=== PATIENT | male | born 1950 | race Caucasian/White ===

== ENCOUNTER → 2016-09-24 | Outpatient (CLI) | payer BC ==
[~2016-09-24] MED LIST: ACET-1256 PO; ALBU0.5N2 NEB; ALBU1AER9 INH; ALFU10TA30 PO; ALPR1TAB3 PO; CETI10TA84 PO; CLON2TAB PO; DIPH1TAB PO; ENOX1INJ8 SQ; FLUO10CA48 PO; FLUO20CA35 PO; FLUT1INH INH; HYDR-5688 PO; MOME200A INH; MONT1TAB3 PO; OXYC-57 PO; OXYSR10 PO; PHEN1SOL3 NAE; PRD/1 PO; PREG1CAP28 PO; PRLSR20 PO; PSEU60TA80 PO; SILO8CAP PO; SUMA50TA15 PO; TRAM-10 PO; TRIA1SPR4 NAE
--- NOTE | 2016-09-24 09:18 | DIAGNOSTIC IMAGING REPORT ---
CHEST 2 VIEWS ROUTINE CLINICAL HISTORY: Chronic bronchitis COMPARISON STUDY: 12/25/2015 FINDINGS: The cardiac and mediastinal contours are normal. There is no evidence of focal pulmonary consolidation. There is no evidence of failure. No pleural effusions are visualized.[ IMPRESSION: No active disease in the chest. Electronically signed by: Alan Garsia M.D. 09/24/2016 9:16 AM Dictated Date/Time: 09/24/2016 9:15 AM
== END | disposition home or self-care (01) ==
LOC: C.RAD1850 08:36
PROVIDERS: ATTEND Internal Medicine Pulmonary Disease
DX: J42 Unspecified chronic bronchitis (principal)

== ENCOUNTER → 2016-12-21 | Outpatient (CLI) | payer BC ==
[~2016-12-21] MED LIST changes: +ALFU10TA2 PO; -ALFU10TA30 PO; -DIPH1TAB PO; +DIPH1TAB87 PO
--- NOTE | 2016-12-21 10:51 | DIAGNOSTIC IMAGING REPORT ---
CHEST CT WITHOUT CONTRAST CT DOSE: 657.88 mGy.cm HISTORY: Follow-up lung nodules. TECHNIQUE: Multiaxial CT images of the chest were performed without contrast. COMPARISON: Chest CT 10/31/2015. Chest CT 10/11/2009. FINDINGS: The central airways are patent. No pleural effusions. No pneumothorax. Stable 6 x 4 mm subpleural nodule within the right middle lobe on image 180. A few scattered linear densities and tree-in-bud nodular opacities within the bases of the bilateral lower lobes are again noted. This is similar to the prior study. There is mild bronchiectasis seen within the bases of the lower lobes, unchanged. Stable 4 mm nodule within the right lower lobe on image 227. No mediastinal or hilar lymphadenopathy. Calcified subcarinal and right hilar lymph nodes. Hepatic steatosis. The unenhanced spleen and adrenal glands are unremarkable. The ascending thoracic aorta measures up to 4 cm in diameter. This remains unchanged. IMPRESSION: 1. Stable subcentimeter pulmonary nodules compared to the [address] Therefore, these are considered to be benign. No additional follow-up required. 2. Mild bilateral lower lobe bronchiectasis with bibasilar patchy densities and tree-in-bud nodular opacities. This is similar to the prior study. This favors chronic inflammatory/infectious change, possibly due to aspiration. 3. The ascending thoracic aorta measures up to 4 cm in diameter, unchanged. Electronically signed by: Jamarcus Vickers M.D. 12/21/2016 10:49 AM Dictated Date/Time: 12/21/2016 10:42 AM
== END | disposition home or self-care (01) ==
LOC: C.CTS 10:27
PROVIDERS: ATTEND Internal Medicine Pulmonary Disease
DX: R91.8 Other nonspecific abnormal finding of lung field (principal)

== ENCOUNTER 2017-01-26 05:12 | Inpatient (IN) | payer BC, OTHER ==
--- NOTE | 2016-12-30 12:03 | PAT Medication Instructions ---
Service Date Dec 30, 2016. Current Home Medication List Acetaminophen (Tylenol), 1 TAB PO Q8 PRN for PRN Albuterol 0.5% Soln (Ventolin 0.5% Soln), 1 VIAL NEB Q6 PRN for Shortness of Breath Albuterol Sulfate (Proair Hfa), 2 PUFFS INH Q4 PRN for SOB/Wheezing Alfuzosin Hcl (Uroxatral), 10 MG PO QAM Cetirizine (Zyrtec), 10 MG PO HS Clonazepam (Clonazepam Odt), 2 MG PO BID Diphenhydramine Hcl (Benadryl Allergy), 25-50 MG PO PRN Fluoxetine (Prozac), 10 MG PO QAM Fluticasone Furoate-Vilanterol (Breo Ellipta), 1 DOSE INH QAM Montelukast Sodium (Singulair), 10 MG PO HS Omeprazole (Prilosec), 20 MG PO QAM Prednisone (Prednisone), 8 MG PO QAM Pregabalin (Lyrica), 150 MG PO BID Tramadol (Ultram), 100 MG PO QID PRN for Pain Triamcinolone Acetonide (Nasal (Nasacort Allergy 24Hr), 2 SPRAY DORIS QAM Medication Instructions For Your Scheduled Surgery - Hold the following medications the morning of surgery: Alfuzosin Hcl (Uroxatral), 10 MG PO QAM - Take the following medications the morning of surgery with a sip of water: Triamcinolone Acetonide (Nasal (Nasacort Allergy 24Hr), 2 SPRAY DORIS QAM Pregabalin (Lyrica), 150 MG PO BID Prednisone (Prednisone), 8 MG PO QAM Omeprazole (Prilosec), 20 MG PO QAM Fluticasone Furoate-Vilanterol (Breo Ellipta), 1 DOSE INH QAM Fluoxetine (Prozac), 10 MG PO QAM Clonazepam (Clonazepam Odt), 2 MG PO BID Albuterol 0.5% Soln (Ventolin 0.5% Soln), 1 VIAL NEB Q6 PRN for Shortness of Breath (if needed) Albuterol Sulfate (Proair Hfa), 2 PUFFS INH Q4 PRN for SOB/Wheezing (bring with you to hospital morning of surgery) Acetaminophen (Tylenol), 1 TAB PO Q8 PRN for PRN (if needed) Tramadol (Ultram), 100 MG PO QID PRN for Pain (okay to take up to 4 hours prior to surgery if needed) Diphenhydramine Hcl (Benadryl Allergy), 25-50 MG PO PRN (if needed) - Take the following medications as scheduled the night before surgery: Pregabalin (Lyrica), 150 MG PO BID Montelukast Sodium (Singulair), 10 MG PO HS Diphenhydramine Hcl (Benadryl Allergy), 25-50 MG PO PRN (if needed) Clonazepam (Clonazepam Odt), 2 MG PO BID Cetirizine (Zyrtec), 10 MG PO HS Albuterol 0.5% Soln (Ventolin 0.5% Soln), 1 VIAL NEB Q6 PRN for Shortness of Breath (if needed) Albuterol Sulfate (Proair Hfa), 2 PUFFS INH Q4 PRN for SOB/Wheezing (if needed) Acetaminophen (Tylenol), 1 TAB PO Q8 PRN for PRN (if needed) Tramadol (Ultram), 100 MG PO QID PRN for Pain (if needed) If you have any questions please call us at [phone] (Kirti Cuellar PA-C) or [phone] or [phone]
[2016-12-30 12:30] LABS: BASO % 0.2 %; BASO ABS # 0.02 K/uL (0-0.2); COMPLETE YES; EOS % 0.3 %; HEMATOCRIT 45.5 % (42-52); IG% 0.2 %; LYMPH % 6.3 %; MEAN CELL VOLUME 91.4 fL (80-100); MEAN CORPUSCULAR HEMOGLOBIN 30.5 pg (25-34); MEAN CORPUSCULAR HGB CONC 33.4 g/dl (32-36); MEAN PLATELET VOLUME 10.6 fL (7.4-10.4); MONO % 4.2 %; NEUT % 88.8 %; PLATELET COUNT 218 K/uL (130-400); RED BLOOD COUNT 4.98 M/uL (4.7-6.1)
[2016-12-30 12:42] LABS: PARTIAL THROMBOPLASTIN RATIO 1.1; PROTHROMBIN TIME (PATIENT) 10.5 SECONDS (9.0-12.0)
--- NOTE | 2016-12-30 12:54 | DIAGNOSTIC IMAGING REPORT ---
TWO VIEW CHEST CLINICAL HISTORY: Preoperative examination. FINDINGS: PA and lateral chest radiographs are compared to study dated 09/24/2016 and correlated with chest CT dated 12/21/2016. The cardiomediastinal silhouette is unremarkable. The lungs and pleural spaces are clear. There is no pneumothorax. The bony thorax appears intact. IMPRESSION: No active disease in the chest. Electronically signed by: Christopher Bhatti M.D. 12/30/2016 12:52 PM Dictated Date/Time: 12/30/2016 12:51 PM
[2016-12-30 14:21] LABS: BUN/CREATININE RATIO 17.6 (10-20); CREATININE 0.9 mg/dl (0.60-1.40); POTASSIUM 4.4 mmol/L (3.5-5.1)
[2016-12-30 14:30] LABS: CALCIUM 9.2 mg/dl (8.5-10.1)
--- NOTE | 2017-01-15 16:11 | HISTORY & PHYSICAL EXAMINATION ---
DATE OF ADMISSION: 01/26/2017 ADMISSION HISTORY AND PHYSICAL ATTENDING PHYSICIAN: Dr. Jos Viera. FAMILY PHYSICIAN: Dr. Luis M Barksdale. CHIEF COMPLAINT: Left knee pain times many years. HISTORY OF PRESENT ILLNESS: The patient is a pleasant 67-year-old male who is here today for a preoperative history and physical scheduled for an elective left total knee arthroplasty by Dr. Viera on 01/26/2017. His pain has been ongoing for the last couple of years has progressively worsened. His pain is increased with activity and weightbearing. He has had decreased activities of daily living, due to pain in his knee that affects him on a daily basis. He has had pain with range of motion and limited motion due to stiffness and discomfort of his left knee. Aggravating activities include walking, going up and down steps. He does get occasional pain at rest and at night. Prior treatments include Tylenol Arthritis prednisone, tramadol, he is unable to take nonsteroidal anti-inflammatories due to his allergy to those. He has had previous corticosteroid injections with no significant long-lasting relief as well as viscosupplementation. He has tried things like ice and heat and activity modification with no significant relief of his left knee pain. Due to failure of conservative treatment and him continuing to have progressively worsening pain, which affects his activities of daily living and quality of life, he has elected to proceed with an elective left total knee arthroplasty. PAST MEDICAL HISTORY: Significant for: 1. Asthma. 2. Polymyalgia rheumatica. 3. Seasonal allergies. 4. Nasal polyps. 5. Osteoarthritis. 6. AC joint arthropathy. 7. Bronchiectasis. 8. Carpal tunnel syndrome of his left wrist. 9. Rheumatoid arthritis in his hands. 10. Panic disorder/panic attacks. 11. History of lung nodules. 12. Eczema. 13. Gastroesophageal reflux disease. CURRENT MEDICATIONS 1. Clobetasol topical 0.05% topical cream as needed. He states he uses these on skin patches that he gets, which are worse in the winter time. 2. Prednisone 7.5 mg alternating with 10 mg, is currently working on a taper to get off these. During the time of his surgery, he may be on 5 mg tablets. 3. Breo Ellipta 100 mcg per mcg/25 mcg 1 puff inhaled daily. 4. Alfuzosin 7.5 mg p.o. daily. 5. Klonopin 2 mg p.o. b.i.d. 6. Prozac 20 mg p.o. daily; he only takes half of the capsule. 7. Tramadol 50 mg 1-2 tabs every 6 hours as needed for pain; he states he takes 8 per day. 8. Singulair 10 mg 1 tab p.o. q.p.m. 9. Zyrtec 10 mg p.o. daily. 10. Tylenol 325 mg p.o. q.i.d. as needed for pain. He does take extra strength 500 mg tablet daily, he takes 1000 mg per day. 11. Albuterol ipratropium 2.5 mg/0.5 mg per 3 mL inhaled solution 3 mL inhaled q.i.d. as needed for shortness of breath. 12. Prilosec 20 mg 1 cap p.o. daily. 13. Nasacort 55 mcg per inhaled nasal spray 2 sprays intranasally daily. 14. Lyrica 150 mg p.o. b.i.d. 15. Albuterol nebulizer p.r.n. wheezing and shortness of breath. ALLERGIES: HE IS ALLERGIC TO: 1. CODEINE WHICH CAUSES WHEEZING AND TICKLING IN HIS THROAT 2. SULFA DRUGS WHICH IS AN ASTHMA TRIGGER. 3. CATS. 4. MOLD. 5. POLLEN. 6. NSAIDS WHICH IS AN ASTHMA TRIGGER AND CAUSES HIM INABILITY TO BREATHE. SOCIAL HISTORY: He lives with his in a single level home. He states that he does drink a couple of beers per day. He denies any tobacco use. He does drink coffee daily. He is a retired electronic repair troubleshooter. PAST SURGICAL HISTORY AND HOSPITALIZATIONS: He had a hernia repair 3 years ago. He has had a history of bilateral knee arthroscopies, history of back surgery with lumbar laminectomy and fusion. He has also had a history of cervical spine and thoracic surgery. He has had a history of nasal polyp surgery. FAMILY HISTORY: Significant for stroke in his mother. His mother also had leukemia and at the age of 87. His father had colon cancer and at the age of 56. REVIEW OF SYSTEMS: Denies any history of blood transfusions, bleeding disorders, blood clots, DVT, phlebitis or pulmonary embolisms. He does have dried scaly patches of eczema during the winter. He also does get headaches and migraines frequently that start with flashes of light and cause occasional pain. He does have blurry vision without his glasses. Denies any history of seizures, lightheadedness or dizziness. He states that he snores a lot and is very loud. He does not know if he has had sleep apnea. If has sleep apnea, he has never been worked up for that. He states he just falls asleep very quickly. He also complains of some recent severe pain in his calf, which seems like a Charley horse, resolved in 10-15 minute and he has not had any further pain since. He also complains of right-sided rib pain, which he attributes to his asthma. Denies any stomach problems, nausea, vomiting, diarrhea or constipation. He states that he does have a history of a hiatal hernia and some mild heartburn. He denies any urinary symptoms or foul-smelling urine or burning with urination. He states he does have trouble with his flow occasionally, beer and coffee help with this. He states that he does not feel like he empties his bladder. He also states that he has unexplained weight gain. He thinks it is from his medications. He states that he has been trying to lose weight, but is not able to do so. He also talks a lot today about the psychiatric medications that he is on. He believes that he has been given a placebo of Ativan and Xanax. He states he feels that his psychiatrist is mixing his medications and giving him medication that he does not want or know about. Although it is not listed in his medication list, he states that he feels like he is on Abilify that he side effects from Abilify and feels that his psychiatrist is secretly giving him that. He states he occasionally gets into a fog. He is worried about anesthesia, being aware of all the meds that he is on. He also states that he has no sexual desire and again thinks that this is the side effects from medications that he feels that his psychiatrist has prescribed him secretly and hidden in the other medications that he takes. PHYSICAL EXAMINATION: GENERAL APPEARANCE: He is alert and oriented x3. He is in no acute distress. Well-dressed, well-nourished male. Height is 6 feet 1 inch, weight is 230 pounds. He walks with a slight antalgic gait with no assistive device. HEENT: Head is atraumatic, normocephalic. Eyes: Extraocular movements intact. Pupils are equal, round and reactive to light. Sclerae are normal. Ears: Hearing is grossly normal. Ear canals are clear. TMs are clear with normal light reflex. NOSE: Normal terminus with no erythema or drainage. Throat: Oropharynx is clear with moist mucous membranes. Good dentition. Uvula midline. NECK: Supple, no lymphadenopathy, no carotid bruits. Trachea is midline. LUNGS: Clear to auscultation bilaterally. No adventitious sounds today. No accessory muscle use. Chest is nontender: No retractions. HEART: Regular rate and rhythm, normal S1, S2. No murmurs appreciated. ABDOMEN: Soft, nontender, nondistended. Bowel sounds heard in all 4 quadrants. EXTREMITIES: Examination of his left knee reveals varus alignment. No effusion of his left knee today. He can extend maybe minus 1 degrees and he can flex to 125 degrees comfortably. He has a stable ligamentous exam. He has crepitation with range of motion. He is able to independently straight leg raise. He has full painless [id number] of his left hip. No calf with palpation. No distal edema. Distal neurovascular is intact. Distal pulses are 1+. RADIOLOGY IMAGES: Knee radiographs show has bilateral knee arthritis, slight varus alignment, the arthritis is moderate to severe with no fracture or subluxation. With the knee in flexion, he is bone on bone, especially in the medial compartment. 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 PLAN: The patient is scheduled to undergo an elective left total knee arthroplasty by Dr. Viera on 01/26/2017. Risks and complications of surgery were explained to the patient and include but are not limited to infection, pain, bleeding, scarring, nerve and blood vessel damage, wound problems, weakness, stiffness, incomplete relief of symptoms, blood clots, pulmonary embolism, hardware failure, loosening, wear, need for manipulation and postoperative arthrofibrosis or stiffness, heart attack, stroke and . All questions were answered. Informed consent was obtained. He will obtain a preoperative appointment with anesthesia, which they will obtain a preoperative EKG, CBC, PT, PTT, PRP, and type and screen. He will also have a chest x-ray at that time. He will obtain preoperative medical clearance from his family physician, Dr. Barksdale. All questions were answered today. He will be admitted postoperatively for a minimum of 2 days stay. hospital course was discussed, postoperative course was discussed. He would like to return home with either home health or outpatient physical therapy. We will use Lovenox for DVT prophylaxis for 4 weeks after surgery 30 mg b.i.d. We will also give him preoperative dose of hydrocortisone 100 mg preoperatively, 50 mg postoperative day #1 and 25 mg postoperative day #2. All questions were answered today. He knows to call with any further problems or questions. BETI
[2017-01-26] VITALS (10 sets, daily range): BP systolic 110–156; BP diastolic 62–89; PULSE 85–115; TEMP 36.4–37.3; O2SAT 92–97; Ht 185.4 cm; Wt 105.8 kg
[~2017-01-26] VITALS: Ht 185.4 cm; Wt 105.8 kg
[~2017-01-26 05:12] MED LIST changes: +ACETAMINOPHEN 500 MG TAB PO SCH; -ALPR1TAB3 PO; +CEFAZOLIN 2000 MG/60 ML D5W 60 ML IV SCH; +CLONIDINE HCL 0.1 MG/24 HR TRANSDERM SYS TD SCH; +DEXAMETHASONE 4 MG TAB PO SCH; -ENOX1INJ8 SQ; +EPINEPHRINE INFIL SCH; +FAMOTIDINE 20 MG TAB PO SCH; -FLUO20CA35 PO; +GABAPENTIN 300 MG CAP PO SCH; -HYDR-5688 PO; +LACTATED RINGER'S 1000ML 1,000 ML IV SCH; +METHYLPREDNISOLONE IV 100 MG in SYRINGE 0 ML IV SCH; +METOCLOPRAMIDE HCL 10 MG TAB PO SCH; -MOME200A INH; -OXYC-57 PO; +OXYCODONE HCL 10 MG TABCR (OXYCONTIN) PO SCH; -OXYSR10 PO; -PHEN1SOL3 NAE; -PSEU60TA80 PO; +ROPIVACAINE 5MG/ML 30 ML 100 MG, MoRPHine SULFATE 4 MG, EpINEphrine INJ 1MG/ML AMP 0.2 ... INFIL SCH; +ROPIVACAINE INFIL SCH; -SILO8CAP PO; -SUMA50TA15 PO; +TRAMADOL HCL 50 MG TAB PO SCH; +TRANEXAMIC ACID INJ 1,000 MG in SODIUM CHLORIDE 0.9% 100ML 100 ML IV SCH; +[UNRECOGNIZED DRUG - OTHER] INFIL SCH; +[UNRECOGNIZED DRUG - REMARK] SCH
[2017-01-26] MEDS ORDERED: METHYLPREDNISOLONE IV 100 MG in SYRINGE 0 ML IV SCH (06:00)
[2017-01-26] MEDS ORDERED: LACTATED RINGER'S 1000ML 500 ML IV ONE (06:00)
[2017-01-26] MEDS ORDERED: EPINEPHRINE IV ONE ×3 (06:00)
[2017-01-26] MEDS ORDERED: CEFAZOLIN 2000 MG/60 ML D5W 60 ML IV SCH (06:00)
[2017-01-26] MEDS ORDERED: GABAPENTIN 300 MG CAP PO SCH (06:00)
[2017-01-26] MEDS ORDERED: FAMOTIDINE 20 MG TAB PO SCH (06:00)
[2017-01-26] MEDS ORDERED: METOCLOPRAMIDE HCL 10 MG TAB PO SCH (06:00)
[2017-01-26] MEDS ORDERED: ACETAMINOPHEN 500 MG TAB PO SCH (06:00)
[2017-01-26] MEDS ORDERED: CLONIDINE HCL 0.1 MG/24 HR TRANSDERM SYS TD SCH (06:00)
[2017-01-26] MEDS ORDERED: OXYCODONE HCL 10 MG TABCR (OXYCONTIN) PO SCH (06:00)
[2017-01-26] MEDS: LACTATED RINGER'S 1000ML 1,000 ML IV SCH ×2 (06:00→21:44)
[2017-01-26] MEDS ORDERED: [UNRECOGNIZED DRUG - OTHER] IV ONE ×3 (06:00)
[2017-01-26] MEDS ORDERED: ROPIVACAINE IV ONE ×3 (06:00)
[2017-01-26] MEDS ORDERED: LACTATED RINGER'S 1000ML 1,000 ML IV SCH (06:00)
[2017-01-26] MEDS ORDERED: TRAMADOL HCL 50 MG TAB PO SCH (06:00)
[2017-01-26] MEDS ORDERED: BUPIVACAINE/EPINEPHRINE 0.25% 1:200,000 30 ML VIAL ONE ×2 (06:35→06:47)
[2017-01-26] MEDS ORDERED: BUPIVACAINE 0.5 % 5 MG/1 ML PF 10ML VIAL ONE (06:36)
[2017-01-26] MEDS ORDERED: MIDAZOLAM HCL 1 MG/ML 2ML VIAL ONE ×3 (06:41→07:27)
[2017-01-26] MEDS: TRANEXAMIC ACID INJ 1,000 MG in SODIUM CHLORIDE 0.9% 100ML 100 ML IV SCH ×2 (06:44→07:00)
--- NOTE | 2017-01-26 06:44 | History & Physical Bridge Note ---
H&P Re-Evaluation Bridge Note: I have examined the patient, reviewed the History & Physical and in the interval since the performance of the History & Physical I have noted the following changes of clinical significance: some wheezing and congestion yesterday, better today, carpal tunnel, lumbago No changes noted
[2017-01-26] MEDS ORDERED: SODIUM CHLORIDE 0.9% PF 50 ML VIAL ONE (06:47)
[2017-01-26] MEDS ORDERED: BUPIVACAINE LIPOSOME 1/3% 266 MG/20 ML VIAL INFIL ONE (06:47)
[2017-01-26] MEDS ORDERED: BACITRACIN 50000 UNIT VIAL ONE (06:47)
[2017-01-26] MEDS ORDERED: ORTHO JOINT ANESTHETIC ONE (07:02)
[2017-01-26] MEDS ORDERED: PROPOFOL IV EMULSION 10 MG/ML 20 ML VIAL IV ONE ×2 (07:33→09:18)
[2017-01-26] MEDS ORDERED: LIDOCAINE HCL 2% 2 ML VIAL (20MG/ML) ONE (07:33)
[2017-01-26] MEDS ORDERED: POVIDONE-IODINE OP SOLN 30 ML BTL ONE (07:34)
[2017-01-26] MEDS ORDERED: ONDANSETRON INJ 2 MG/ML 2 ML VIAL IV PRN ×2 (08:15→09:45)
[2017-01-26] MEDS ORDERED: FLUMAZENIL 0.1 MG/1 ML 10 ML VIAL IV PRN (08:15)
[2017-01-26] MEDS ORDERED: EpHEDrine SULFATE INJ 50 MG/ML AMP IV PRN (08:15)
[2017-01-26] MEDS ORDERED: MEPERIDINE HCL 25 MG/ML CARP IV PRN (08:15)
[2017-01-26] MEDS ORDERED: NALOXONE HCL 0.4 MG/1 ML VIAL/CARP IV PRN (08:15)
[2017-01-26] MEDS ORDERED: ATROPINE SULFATE 0.1 MG/ML 5ML SYR IV PRN (08:15)
[2017-01-26] MEDS ORDERED: LABETALOL HCL IV 5 MG/ML 20ML IV PRN (08:15)
[2017-01-26] MEDS ORDERED: PHENYLEPHRINE 100MCG/ML 5ML SYR IV PRN (08:15)
[2017-01-26] MEDS ORDERED: FENTANYL CITRATE INJ 50 MCG/1 ML 2 ML VIAL IV PRN (08:15)
--- NOTE | 2017-01-26 09:43 | [facility] Post Operative Brief Note ---
Immediate Operative Summary Operative Date January 26, 2017. Pre-Operative Diagnosis Left knee end stage degenerative joint disease Post-Operative Diagnosis Left knee end stage degenerative joint disease Procedure(s) Performed Left Total Knee Arthoplasty Surgeon Dr. Viera Benefits Analyst Surgeon(s) Gloria Roth PA-C Estimated Blood Loss 25ml Findings medial and patellar OA Specimens A: Left knee bone and tissue Drains 0 Anesthesia spinal with sedation Complication(s) None Disposition Recovery Room / PACU
[2017-01-26] MEDS ORDERED: SOD PHOSPHATE/SOD BIPHOSPHATE ENEMA 132 ML BTL PR PRN (09:45)
[2017-01-26] MEDS ORDERED: TRAMADOL HCL 50 MG TAB PO PRN (09:45)
[2017-01-26] MEDS ORDERED: NO NSAIDS SCH (09:45)
[2017-01-26] MEDS ORDERED: MAGNESIUM HYDROXIDE SUSP 30 ML UDC PO PRN (09:45)
[2017-01-26] MEDS ORDERED: ALBUTEROL HFA 8 GM INHALER INH PRN (09:45)
[2017-01-26] MEDS ORDERED: ALBUTEROL 0.083% NEBU SOLN 3 ML VIAL INH PRN (09:45)
[2017-01-26] MEDS ORDERED: BISACODYL 10 MG SUPP PR PRN (09:45)
[2017-01-26] MEDS ORDERED: DiphenhydrAMINE HCL 50 MG/ML VIAL IV PRN (09:45)
[2017-01-26] MEDS ORDERED: ALUMINUM/MAGNESIUM/SIMETH (MAALOX MAX) 30 ML UDC PO PRN (09:45)
--- NOTE | 2017-01-26 09:55 | [facility] Operative Report ---
Operative Report Operative Date January 26, 2017. Pre-Operative Diagnosis Left knee end stage degenerative joint disease Post-Operative Diagnosis Left Knee DJD Procedure(s) Performed Left Total Knee Arthroplasty Surgeon Dr. Jos Viera Financial Internship Surgeon(s) Jazmine Roth PA-C Estimated Blood Loss 25ml Findings DJD left knee Specimens A: Left knee bone and tissue Drains 0 Anesthesia spinal with sedation Complication(s) None Disposition Recovery Room / PACU (stable) Indications Patient is a 67 year old male with progressively worsening left knee pain, failed conservative treatments which included, corticosteroid injections, viscosupplementation and physical therapy. X-rays were taken, he was found to have end stage DJD left knee. Surgical intervention recommended and discussed, he wished to proceed with surgery. Risks/complications were discussed, informed consent obtained. Description of Procedure Patient was taken to the operating room. He had spinal anesthesia with peripheral nerve block. He was given IV Ancef for surgical prophylaxis. He also had 100mg Solu-Medrol prior to surgery. Time out performed, prepped and draped in routine sterile fashion. I was present the entire case,please see Dr Ross's operative report for further detail. He was awakened and taken to the recovery room in stable condition. I attest to the content of the Intraoperative Record and any orders documented therein. Any exceptions are noted below.
--- NOTE | 2017-01-26 10:12 | DIAGNOSTIC IMAGING REPORT ---
LEFT KNEE 1 OR 2 VIEWS ROUTINE CLINICAL HISTORY: Left knee degenerative joint disease. COMPARISON: Knee radiographs January 29, 2016. FINDINGS: Alignment of the total left knee arthroplasty is anatomic. There is no fracture or unexpected radiopaque foreign body. Skin jose manuel are present. IMPRESSION: Expected findings following total left knee arthroplasty. Electronically signed by: Jai Toledo M.D. 01/26/2017 10:10 AM Dictated Date/Time: 01/26/2017 10:10 AM
--- NOTE | 2017-01-26 10:35 | Anesthesiology Progress Note ---
Anesthesia Post Op Note Date & Time January 26, 2017 at 10:34 Vital Signs Pain Intensity: 0 Vital Signs Past 12 Hours Date Time Temp Pulse Resp B/P Pulse Ox O2 Delivery O2 Flow Rate FiO2 01/26/17 10:20 36.7 82 12 105/67 98 Nasal Cannula 2 01/26/17 10:10 86 12 108/66 99 Nasal Cannula 2 01/26/17 10:00 87 12 102/66 96 Nasal Cannula 2 01/26/17 09:50 86 14 108/66 98 Nasal Cannula 2 01/26/17 09:40 36.2 92 11 117/67 96 Nasal Cannula 2 01/26/17 05:45 36.5 86 18 139/84 94 Room Air Notes Mental Status: alert / awake / arousable, participated in evaluation Pt Amnestic to Procedure: Yes Nausea / Vomiting: adequately controlled Pain: adequately controlled Airway Patency, RR, SpO2: stable & adequate BP & HR: stable & adequate Hydration State: stable & adequate Neuraxial Anesthesia: was administered, sensory block is resolving Anesthetic Complications: no major complications apparent
[2017-01-26] MEDS ORDERED: PNEUMOCOCCAL POLYSACCHARIDES 25 MCG/0.5 ML VIAL/SYR IM. ONE (12:00)
[2017-01-26] MEDS ORDERED: PNEUMOCOCCAL ADMINISTRATION CHARGE ONE (12:00)
[2017-01-26] MEDS: D5W AND 1/2NSS + 20MEQ KCL 1,000 ML IV SCH ×2 (12:19→20:41)
[2017-01-26] MEDS: OXYCODONE HCL IR 5 MG TAB (IMMEDIATE RELEASE) PO PRN ×3 (12:19→23:22)
[2017-01-26] MEDS: HYDROmorphone INJ 1 MG/ML SYR IV PRN ×2 (13:13→15:41)
--- NOTE | 2017-01-26 13:45 | OPERATIVE REPORT ---
DATE OF OPERATION: 01/26/2017 PREOPERATIVE DIAGNOSIS: Osteoarthritis of the left knee with varus alignment. POSTOPERATIVE DIAGNOSIS: Same. PROCEDURE: Cemented left total knee arthroplasty. SURGEON: Dr. Viera. ORDER CLERK: Jazmine Roth. No resident or fellow available. ANESTHESIA: Spinal with sedation and adductor canal block. INDICATIONS OF PROCEDURE: The patient is a 67-year-old gentleman with end-stage arthritis of his left knee refractory to nonsurgical methods of management. He has had preoperative medical evaluation with his family doctor. PROCEDURE IN DETAIL: Informed consent was obtained. The patient identified as Keshav Wagner. He identified the operative site as the left knee. I marked with my initials. A preop surgical time out was performed. A preop dose of IV antibiotics was given. He was taken to the operating room, positioned supine on the operating room table. A bump was placed under the left hip and also under the left calf for positioning of the leg. A tourniquet was applied to the left thigh. The leg was prepped and draped in usual sterile fashion. DVT prophylaxis intraoperatively with foot pumps, postoperatively with Lovenox and early mobility as well as mechanical devices. The examination under anesthesia revealed less than 5 degree loss of terminal extension, varus alignment and no pathological ligamentous laxity. He had intact LCL function and no varus pseudolaxity. Flexion was approximately 130 degrees. The leg was prepped and draped in usual sterile fashion. The limb was exsanguinated with the Esmarch, tourniquet inflated to 225 mmHg. A midline incision was made followed by medial parapatellar arthrotomy. The synovial reflection in the lateral gutter was resected along with the retropatellar fat pad, a medial release was performed and soft tissue on the anterior aspect of the distal femur was excised. There was grade 4 chondrosis on the medial facet and median ridge of the patella about the size of a nickel. The median ridge and medial facet otherwise had grade 2 and 3 chondrosis. The lateral facet had relatively normal appearing cartilage. The trochlea, lateral compartment and lateral menisci were normal. There were large osteophytes on the medial side of the femur and tibia where there were large areas of cartilage wear and eburnated bone, 2 x 4 cm on the femur and the size of a quarter on the tibia. Two loose bodies were evacuated from back of the knee. The medial meniscus was deficient, particularly posteriorly where there appeared to be a posterior root tear. The remnants of the medial and lateral menisci and the cruciate ligaments were removed. The tibia was then subluxated. A ship pilot dispatcher hole was drilled into the tibia just anterior to the lateral tibial spine. The 0 degree cutting block was aligned to resect 10 off the lateral side corresponding to 2 off the medial side. The extramedullary alignment adina showed good slope and alignment intersecting the second ray and bisecting the ankle joint. The block was pinned in place. The cut was made and sized to a 5. A posteromedial release and marginal osteophytes were removed. A ship pilot dispatcher hole was drilled into the distal femur. Alignment adina was inserted followed by the distal femoral cutting guide set at 6 degrees of valgus, left knee 12 mm thick cut. This was pinned into place and the cut was made. The extension gap was a symmetric 10. The knee was then fully straight. Meagher's line and the transepicondylar axis were marked out and the distal femoral sizing guide was applied and sized to a 5. The external rotation drill holes were made and this matched the epicondylar axis. The size 5 anterior cutting block was applied. The collateral ligaments were protected and the anterior and posterior cuts plus the chamfer cuts were made. The flexion gap was a symmetric 10. The box cutting guide was applied, lateralized, pinned into place and the appropriate cut was made. There were no osteophytes noted in the back of the knee on inspection. The 5 femoral trial was applied followed by the 5 tibial trial. The keel was prepared with the drill and punch. The trial spacer was inserted and this showed full extension and flexion beyond 120 degrees neutral alignment, no pathological laxity in mid position, 1+ LCL laxity at 30 degrees and trace MCL laxity at 30 degrees. Attention was turned to the patella. The thickness was 24 mm. A 41 mm patella was selected. The guide was set to preserve 14 mm of bone. The clamp was applied and the cut was made. The patella was distalized and medialized. The lug holes were drilled and the trial patella was applied with good tracking using no hands technique. The components were removed from the knee. The canals were plugged. Ropivacaine and epinephrine plus saline were injected into the posterior capsular structures, approximately 15 mL. Throughout the case irrigation and protection of soft tissues were performed and moistened sponges were applied over the soft tissues during the approach and exposure. Two bags of Simplex P cement were mixed and after meticulously cleaning and preparing the surfaces with pulse lavage and drying them, the components were cemented in place; femur, tibia, and patella. The knee was held in full extension until the cement had hardened. During this time the remainder of the injection was given into the medial and lateral gutters and the skin and subcutaneous tissues for total volume of 40 mL. Irrigation with Betadine lavage soak was performed. The tourniquet was let down after 85 minutes of inflation. Bleeding was controlled with pressure and hemostasis. The second dose of tranexamic acid was given as one was given preoperatively. The back of the knee was inspected for cement. There was a large fragment laterally which were removed. Otherwise, extraneous cement was removed, particularly in the posterolateral side of the knee where there was a large piece and otherwise, there were some small marginal pieces noted. The back of the knee was inspected for cement, irrigated and the final polyethylene was inserted. The aforementioned laxity pattern was noted with normal patellar tracking, no laxity in 90 degrees flexion, 1+ LCL and 30 degrees trace, MCL at 30 degrees. The knee was fully extended and stable in full extension. Pulse lavage was performed and then the extensor mechanism was closed with #2 FiberWire above the equator of the patella running and interrupted #1 Vicryl below. The skin was closed with 0 and 2-0 Vicryl in layers followed by jose manuel. A soft sterile dressing was applied followed by a full length Pilo wrap and a knee immobilizer. The gravity assisted flexion with the extensor mechanism closed was approximately 125 degrees. The patient was then awakened from anesthesia without difficulty, taken to recovery room in stable condition. There were no complications. The resected bone was sent for specimen. Counts were correct at the end of case. At the conclusion of the operation, I spoke to patient's and informed her of my findings. Postoperative instructions were given. We will consult his medical doctor for assistance with medical management. He is allergic to NSAIDS. We will have him on pain medication regimen and rehab according to the total knee pathway and Lovenox will start 12-15 hours postoperatively. Components inserted were the J\T\J PFC sigma rotating platform knee, a size 5 left posterior stabilized femoral component, a size 5 mobile bearing keel tibial tray, a 3 peg 41 mm oval dome patella and a size 5 10 mm thick rotating platform, posterior stabilized insert. I attest to the content of the Intraoperative Record and any orders documented therein. Any exceptio ns are noted below.
[2017-01-26] MEDS: CEFAZOLIN IV 2,000 MG in DEXTROSE 5% 50ML 50 ML IV SCH ×2 (15:47→23:22)
[2017-01-26] MEDS: ACETAMINOPHEN 325 MG TAB PO PRN (18:19)
--- NOTE | 2017-01-26 20:22 | PROGRESS NOTE ---
DATE: 01/26/2017 HISTORY OF PRESENT ILLNESS: Keshav is resting comfortably in bed. His pain is reasonably well controlled. He is afebrile. His vital signs are stable. 5/5 distal motor function, normal sensation, 2+ posterior tib pulse. Radiographs of the knee show no complication. There is a well-positioned total knee arthroplasty in place. There is no fracture. I discussed with him my findings related to surgery. He will start on Lovenox this evening. We discussed pain control, wound care, and rehab expectations and milestones. Elevate the leg. Stress dose of steroids. Routine course of postop IV antibiotics. he had urinary retention and required catheterization. MTDD
[2017-01-26] MEDS: DOCUSATE SODIUM 100 MG CAP PO SCH (20:40)
[2017-01-26] MEDS: MONTELUKAST SOD 10 MG TAB PO SCH (20:40)
[2017-01-26] MEDS: PREGABALIN 150 MG CAP PO SCH (20:40)
[2017-01-26] MEDS: CETIRIZINE HCL 10 MG TAB PO SCH (20:40)
[2017-01-26] MEDS: CLONAZEPAM 1 MG TAB PO SCH (20:41)
[2017-01-26] MEDS: OXYCODONE HCL 10 MG TABCR (OXYCONTIN) PO SCH (20:41)
[2017-01-26] MEDS: ENOXAPARIN 30 MG/0.3 ML SYR SQ SCH (21:21)
--- NOTE | 2017-01-26 23:41 | INTERNAL MEDICINE CONSULTATION ---
DATE OF CONSULTATION: 01/26/2017 A 67-year-old male, underwent a left total knee arthroplasty this morning by Dr. Viera and he was admitted postoperatively. The patient with multiple medical problems includin. Bronchial asthma. 2. Environmental allergies. 3. Anxiety and panic disorder. 4. Polymyalgia rheumatica. 5. Chronic pain syndrome. 6. Chronic fatigue. 7. History of palpitation with negative evaluation. 8. Osteoarthritis. 9. Dysuria. CURRENT MEDICATIONS: Include: 1. Prednisone 7.5 mg daily. 2. Lyrica 150 mg twice a day. 3. Clonazepam 2 mg twice a day. 4. Zyrtec 10 mg daily. 5. Singulair 10 mg daily. 6. Tramadol 1-2 tablets every 6 hours as needed. 7. Albuterol 2 puffs 4 times a day as needed. 8. Alfuzosin 10 mg daily. 9. Prozac 20 mg daily. 10. Nasacort nasal spray, when needed. 11. Mucinex, when needed. The patient tolerated the procedure very well. He is quite comfortable. His pain is under control. He denied any headache or dizziness. No chest pain, no shortness of breath. No abdominal pain, no nausea, no vomiting. He did have urinary retention and he was catheterized for 1600 mL of urine. His left knee pain is under control. PHYSICAL EXAMINATION: GENERAL: Well developed, in no distress. He is resting quite comfortably, sitting up in the chair. His recorded weight is 105.8 kg, height 185.4 cm, BMI 30.8. SKIN: Warm and dry. No rash. HEENT: He usually wears glasses. Oxygen cannula in place. NECK: No adenopathy, no thyromegaly, no JVD. HEART: Regular heart sounds. No murmur, rub, or gallop. LUNGS: Clear. No wheezing. ABDOMEN: Soft, nontender. BACK: No spinal tenderness. EXTREMITIES: No edema, clubbing, or cyanosis. Surgical dressing, left knee. ASSESSMENT: 1. Left total knee arthroplasty. 2. Osteoarthritis. 3. Polymyalgia rheumatica. 4. Anxiety and panic disorder. 5. Depression. 6. Environmental allergies. PLAN: As noted, his procedure was well tolerated. He is sitting up in the chair. Resting comfortably. Tolerating his diet. He did have to be catheterized because of urinary retention. His urine output will be monitored. Catheterization will be done again, if needed. If he needs repeat intermittent bladder catheterization, then a Howe catheter will be placed. He is continued on his medications. Pain control. Physical therapy.
[2017-01-27] VITALS (10 sets, daily range): BP systolic 115–130; BP diastolic 67–78; PULSE 96–120; TEMP 37–38.2; O2SAT 92–97
[2017-01-27] MEDS: ACETAMINOPHEN 325 MG TAB PO PRN (03:14)
[2017-01-27] MEDS: OXYCODONE HCL IR 5 MG TAB (IMMEDIATE RELEASE) PO PRN ×5 (03:15→22:06)
[2017-01-27 05:11] LABS: HEMATOCRIT 37.4 % (42-52); MEAN CELL VOLUME 88.4 fL (80-100); MEAN CORPUSCULAR HEMOGLOBIN 29.8 pg (25-34); MEAN CORPUSCULAR HGB CONC 33.7 g/dl (32-36); PLATELET COUNT 200 K/uL (130-400); RED BLOOD COUNT 4.23 M/uL (4.7-6.1); WHITE BLOOD COUNT 11.33 K/uL (4.8-10.8)
[2017-01-27 05:28] LABS: BUN/CREATININE RATIO 13.4 (10-20); CALCIUM 8.1 mg/dl (8.5-10.1); CREATININE 0.76 mg/dl (0.60-1.40); POTASSIUM 3.8 mmol/L (3.5-5.1)
[2017-01-27] MEDS: D5W AND 1/2NSS + 20MEQ KCL 1,000 ML IV SCH (06:16)
[2017-01-27] MEDS: CLONAZEPAM 1 MG TAB PO SCH ×2 (07:35→20:59)
[2017-01-27] MEDS: OXYCODONE HCL 10 MG TABCR (OXYCONTIN) PO SCH ×2 (07:36→21:00)
[2017-01-27] MEDS: PREGABALIN 150 MG CAP PO SCH ×2 (07:36→20:59)
[2017-01-27] MEDS: FLUOXETINE HCL 10 MG CAP PO SCH (07:37)
--- NOTE | 2017-01-27 07:43 | Anesthesiology Progress Note ---
Anesthesia Post Op Note Date & Time January 27, 2017 at 07:42 Vital Signs Pain Intensity: 10.0 Vital Signs Past 12 Hours Date Time Temp Pulse Resp B/P Pulse Ox O2 Delivery O2 Flow Rate FiO2 01/27/17 06:00 37.0 01/27/17 03:02 38.0 102 18 115/70 94 Room Air 01/26/17 22:50 37.3 98 18 111/75 97 Nasal Cannula 3.0 01/26/17 19:45 Nasal Cannula 3.0 Notes Mental Status: alert / awake / arousable, participated in evaluation Pt Amnestic to Procedure: Yes Nausea / Vomiting: adequately controlled Pain: adequately controlled Airway Patency, RR, SpO2: stable & adequate BP & HR: stable & adequate Hydration State: stable & adequate Anesthetic Complications: no major complications apparent
--- NOTE | 2017-01-27 08:14 | Progress Note ---
Orthopedic SOAP Note Subjective Date of Service: January 27, 2017. Post OP Day: 1 Reports: feeling well, pain controlled w PO medications (pain certainly reported but tolerable at this point, medications ordered accordingly ), Denies : SOB, calf pain, chest pain, complaints, light headedness, nausea / vomiting, using GRANITE FABRICATOR Objective calves soft nontender, N/V intact, capillary refill less than 2 sec., dressing C /D/I, A&O x3, toes mobile knee immobilizer in place helped patient get to bedside chair felt better sitting upright versus lying in bed, notably for his back pain patient's in room as well Date Time Temp Pulse Resp B/P Pulse Ox O2 Delivery O2 Flow Rate FiO2 01/27/17 08:01 37.6 103 17 130/78 Room Air 01/27/17 06:00 37.0 01/27/17 03:02 38.0 102 18 115/70 94 Room Air 01/26/17 22:50 37.3 98 18 111/75 97 Nasal Cannula 3.0 01/26/17 19:45 Nasal Cannula 3.0 01/26/17 19:19 36.8 99 16 156/89 96 Room Air 3.0 01/26/17 15:48 96 94 Nasal Cannula 3.0 01/26/17 14:58 36.5 115 18 138/79 94 Nasal Cannula 2.0 01/26/17 13:54 85 16 135/78 95 Nasal Cannula 2.0 01/26/17 12:31 36.6 91 19 136/84 94 Nasal Cannula 2.0 01/26/17 11:30 36.4 85 18 115/74 94 Nasal Cannula 2.0 01/26/17 10:59 36.4 85 16 110/70 92 Nasal Cannula 2.0 01/26/17 10:30 36.6 87 18 113/62 93 01/26/17 10:30 Nasal Cannula 2.0 01/26/17 10:30 Nasal Cannula 2.0 01/26/17 10:20 36.7 82 12 105/67 98 Nasal Cannula 2 01/26/17 10:10 86 12 108/66 99 Nasal Cannula 2 01/26/17 10:00 87 12 102/66 96 Nasal Cannula 2 01/26/17 09:50 86 14 108/66 98 Nasal Cannula 2 01/26/17 09:40 36.2 92 11 117/67 96 Nasal Cannula 2 Laboratory Results 24 Hours: Test 01/27/17 04:49 Hematocrit 37.4 % Hemoglobin 12.6 g/dL Assessment post op day 1 Left TKA Plan continue post op care DVT prophylaxis with Lovenox 30mg BID x 4 weeks then transition to ASA 325mg BID for additional 2 weeks no NSAIDs pain control with prescribed medications TEDs in place PT/OT Dressing to be changed post op day 2 ice/elevate left L.E. WBAT Left L.E. with walker and assist Resume diet Will discuss further with Dr. Viera Any other questions or concerns please notify our office, thank you
[2017-01-27] MEDS: ENOXAPARIN 30 MG/0.3 ML SYR SQ SCH ×2 (08:57→22:06)
[2017-01-27] MEDS: TRIAMCINOLONE ACET NASAL SPRAY 10.8ML BTL NAE SCH (08:59)
[2017-01-27] MEDS: FLUTICASONE FUROATE-VILANTEROL 60 PUFFS INH INH SCH (08:59)
[2017-01-27] MEDS: ALFUZosin TAB 10 MG TAB PO SCH (09:00)
[2017-01-27] MEDS ORDERED: METHYLPREDNISOLONE IV 50 MG in SYRINGE 0 ML IV SCH (09:00)
[2017-01-27] MEDS ORDERED: FLUTICASONE FUROATE VILANTEROL INH SCH (09:00)
[2017-01-27] MEDS: PANTOprazole SOD 40 MG TAB PO SCH (09:00)
[2017-01-27] MEDS: DOCUSATE SODIUM 100 MG CAP PO SCH ×2 (09:00→20:59)
[2017-01-27] MEDS: MULTIVITAMIN TAB PO SCH (09:00)
[2017-01-27] MEDS: HYDROmorphone INJ 1 MG/ML SYR IV PRN ×2 (14:34→23:16)
--- NOTE | 2017-01-27 19:22 | PROGRESS NOTE ---
DATE: 01/27/2017 SUBJECTIVE: He is comfortable in bed at this point. He has had several fevers of 38. He has been slightly tachycardic. EKG was done showing no acute changes compared to previous. Currently, his pain is well controlled, although he had increased pain earlier today and was also reported that he was slightly hypoxic, this is also improved and is now 95% on 2 liters. Respiratory rate is within normal limits. He has been able to void and has adequate urinary output. His white count is 11, likely secondary to steroids, hematocrit is 37. His PRP is noted. OBJECTIVE: His dressing is clean and dry. He has intact distal neurovascular function, a 1+ posterior tib pulse, 5/5 distal toe and ankle plantar flexion and dorsiflexion strength and normal sensation in the foot. IMPRESSION: Left knee replacement. PLAN: I reviewed discharge instructions with him. He was educated about his pain control options. He needs to be a little bit more proactive in taking pain medication before the pain gets too severe. Continue routine postoperative care for his total knee. He has done well with physical therapy. Pulmonary toilet is encouraged. Continue Lovenox for DVT prophylaxis.
[2017-01-27] MEDS: MONTELUKAST SOD 10 MG TAB PO SCH (20:59)
[2017-01-27] MEDS: CETIRIZINE HCL 10 MG TAB PO SCH (20:59)
--- NOTE | 2017-01-27 21:27 | PROGRESS NOTE ---
DATE: 01/27/2017 HISTORY OF PRESENT ILLNESS: A 67-year-old male underwent a knee replacement yesterday by Dr. Viera. He did very well through surgery. Postoperatively, he was quite comfortable. He was not having any discomfort. Today, he stated that he was feeling tired. He did not really sleep well last night. He was having pain. This afternoon, he also had an episode where he became tachycardic. His oxygen saturation also decreased. An electrocardiogram was done. It showed sinus tachycardia but without any other abnormalities. The episode subsided spontaneously. He was medicated with Dilaudid for his pain. At this time, he is resting comfortably. He just woke up from his sleep. He denied any headache or dizziness. No chest pain, no shortness of breath. No abdominal pain. He is tolerating his diet. No nausea, no vomiting. No back pain. He is having pain in his knee related to the surgery. PHYSICAL EXAMINATION: GENERAL: Well developed, in no distress. VITAL SIGNS: Blood pressure 120/67, pulse 113, respirations 20, temperature 37, oxygen saturation 92% on 2 liter oxygen by nasal cannula. SKIN: Warm and dry. No rash. HEENT: Oxygen cannula in place. NECK: No JVD. No adenopathy. HEART: Regular heart sounds. LUNGS: Clear. No wheezing. ABDOMEN: Soft, nontender. EXTREMITIES: No edema, clubbing, or cyanosis. Surgical dressing from knee surgeries. TODAY'S LABORATORY TESTS: WBC count 11,330, hemoglobin 12.6, hematocrit 37.4, and platelet count 200,000. Sodium 139, potassium 3.8, chloride 105, CO2 28, BUN 10, creatinine 0.76, glucose 111, and calcium 8.1. ASSESSMENT: 1. Left total knee arthroplasty. 2. Bronchial asthma. 3. Environmental allergies. 4. Episode of decreased oxygen saturation and tachycardia, spontaneous resolution. He was having pain at that time and he was medicated and he felt comfortable after that. 5. Polymyalgia rheumatica. 6. Episode of urinary retention, but he has been able to void without any problem. PLAN: 1. Continuing the same medications. 2. Continuing with his therapies. 3. We will monitor for any recurrent episodes of any tachycardia.
[2017-01-28] MEDS: OXYCODONE HCL IR 5 MG TAB (IMMEDIATE RELEASE) PO PRN ×3 (05:13→13:17)
--- NOTE | 2017-01-28 07:41 | Discharge Instructions ---
Discharge Instructions Date of Service January 28, 2017. Admission Reason for Admission: Left Knee Degenerative Joint Disease Discharge Discharge Diagnosis / Problem: Left Knee Degnerative Joint Disease Discharge Goals Goal(s): Decrease discomfort, Improve function, Increase independence Activity Recommendations Activity Limitations: per Instructions/Follow-up section . Instructions / Follow-Up Instructions / Follow-Up New Medicine: * You will likely be taking one or more of these medications: 1. Lovenox - You will be on Lovenox for 4 weeks after surgery to prevent blood clots. Once completed with Lovenox you will be instructed to take Aspirin 325mg twice daily x 2-4 weeks after surgery. Please take Aspirin with food. Dr. Viera will discuss this with you further at your post operative appointment. 2. Oxycontin - Take one every 12 hours. 3. Percocet - Take, as directed, when you need it, every four to six hours to control your pain. 4. Colace & Senokot - Take to prevent constipation which can be caused by narcotics. These can be bought [id number] at the pharmacy * The most common side effects of pain medicine and iron are nausea and constipation. If nausea or constipation is too much of a problem or if you have any questions about your new medicines or doses, call [facility] at . We will try to help you manage these issues. VERY IMPORTANT TO READ AND REVIEW" Blood Clots and Blood Thinning Medicine: * You are given Lovenox during the immediate post-operative period to lessen the risk of blood clots forming in your legs and/or lungs. * You will need to get your blood count checked weekly while on Lovenox. A prescription will be provided to you from your physician at discharge. Physical Therapy: * Do your physical therapy at home. These are the exercises you learned while in the hospital (quad sets, leg raises, calf pumps, gluteal squeezes, knee bending, and heel props.) You should do these exercises 3-4 times per day. * You will either go to inpatient rehab ([facility]), home with Home Therapy and nursing or home with outpatient rehab. You should do rehab with the therapist 2-3 times per week. You should do therapy on your own daily. * You may bear full weight on your leg with crutches or walker unless otherwise advised. Home Exercise: * You were shown a series of exercises (heel props, heel slides, etc.) in the hospital. Do these exercises three to four times each day including the exercises you were shown in physical therapy. Walking: * You may be up for short periods of time. Standing and walking for 1-2 hours at a time is usually okay. You should not stand or walk for excessive periods of time as this may cause increased pain and swelling. SELF CARE INSTRUCTIONS AFTER TOTAL KNEE REPLACEMENT A. You may need to continue a physical therapy program after discharge from the hospital. There are several options available to you. Your doctor will assist you in selecting the best one for you. 1. An out-patient facility 2 to 3 times a week for therapy or home therapy. 2. Continue working on all exercises taught to you in the hospital. Your goals should be to increase bending of your knee to 90 degrees and beyond and to fully straighten your knee. B. Your therapist will notify you when you are able to progress from a walker to a cane. C. Wear TEDS as much as possible.~ They may be removed at night for laundering. D. Do not place a pillow behind your knee when resting. A pillow at your ankle is okay. E. Ice your knee 15-20 minutes every 2-3 hours and elevate it above the level of your heart. F. You may shower on the fourth day after surgery using regular soap and water. Do not submerge until the wound is completely healed (approximately 2 weeks ). Until the fourth day after surgery, cover the incision/bandage with a bag or plastic wrap. G. Anyone who is touching your surgical incision area should wash their hands and wear gloves. H. Keep your incision covered with gauze pads under the KINGSTON hose until it is dry. VERY IMPORTANT TO READ AND REVIEW A. YOU WILL BE GIVEN AN ORDER AT DISCHARGE FOR PT/INR (BLOOD WORK). PLEASE HAVE THIS DONE INSTRUCTED. PLEASE CALL OUR OFFICE AFTER YOUR BLOODWORK IS COMPLETE SO WE CAN TRACK YOUR RESULTS. IF YOU ARE GOING TO OUTPATIENT PHYSICAL THERAPY, YOU WILL NEED TO GO TO OUTPATIENT TESTING TO HAVE IT DRAWN. B. There are a few signs you need to watch for after you are home. Call [facility] if you notice any of the followin. Increased severe knee pain. Some pain is expected especially when you exercise. 2. Increased swelling in your leg or knee; pain or swelling of the calf muscle in either lower leg. 3. Any fluid drainage from the incision. 4. Shortness of breath or chest pain. 5. Numbness and tingling in the surgical extremity C. Please call [facility] at if you have any concerns or questions about your operation or recovery. The doctor or his nurse will return your call promptly. D. Do not have any elective dental work or other elective procedures done for 6 weeks after your knee replacement. When you have any invasive procedure (dental cleaning, extraction, colonoscopy etc) performed, you will need to take antibiotics to prevent infection from developing in your artificial joint. Tell your other health care providers you have an artificial joint. My office will supply you with further information and the antibiotics. Call your doctor if: * Temperature above 101 degrees F. * Pain not relieved by pain medicine ordered. * Increased drainage or redness from incision. * Notify your doctor with any questions or concerns. Follow-up Visit: You will follow-up with Dr. Viera 10-14 days after surgery. The office number is . Your follow up with Dr. Viera is scheduled for 02/10/17 at 11:45 p.m. Avoid all tobacco products. If you need help to stop smoking, call [facility] at . This is a free call. Current Hospital Diet Patient's current hospital diet: Regular Diet Discharge Diet Recommended Diet: Regular Diet Procedures Procedures Performed: Left Total Knee Arthoplasty Pending Studies Studies pending at discharge: no Medical Emergencies . Who to Call and When: Medical Emergencies: If at any time you feel your situation is an emergency, please call 911 immediately. . Non-Emergent Contact Non-Emergency issues call your: Surgeon Call Non-Emergent contact if: temperature is above 101, your pain is not controlled, your pain is concerning you, wound has increased drainage, you have any medication questions . "Provider Documentation" section prepared by Jazmine Roth. . VTE Core Measure Inpt VTE Proph given/why not?: Enoxaparin (Lovenox)Tiffanie SANDERS [place] Drug Monitoring Program Search Results: patient reviewed within database, no issues identified
[2017-01-28 07:45] VITALS: BP 122/70; PULSE 107; PULSE 90; TEMP 37.3; O2SAT 96
[2017-01-28 07:59] VITALS: O2SAT 96
[2017-01-28] MEDS: FLUTICASONE FUROATE-VILANTEROL 60 PUFFS INH INH SCH (08:24)
[2017-01-28] MEDS: TRIAMCINOLONE ACET NASAL SPRAY 10.8ML BTL NAE SCH (08:24)
[2017-01-28] MEDS: CLONAZEPAM 1 MG TAB PO SCH (08:25)
[2017-01-28] MEDS: PREGABALIN 150 MG CAP PO SCH (08:25)
[2017-01-28] MEDS: OXYCODONE HCL 10 MG TABCR (OXYCONTIN) PO SCH (08:25)
[2017-01-28] MEDS: DOCUSATE SODIUM 100 MG CAP PO SCH (08:28)
[2017-01-28] MEDS: FLUOXETINE HCL 10 MG CAP PO SCH (08:29)
[2017-01-28] MEDS: MULTIVITAMIN TAB PO SCH (08:29)
[2017-01-28] MEDS: ALFUZosin TAB 10 MG TAB PO SCH (08:29)
[2017-01-28] MEDS: PANTOprazole SOD 40 MG TAB PO SCH (08:29)
[2017-01-28] MEDS ORDERED: OXYC-57 PO (08:31)
[2017-01-28] MEDS ORDERED: OXYSR10 PO (08:31)
[2017-01-28] MEDS: ENOXAPARIN 30 MG/0.3 ML SYR SQ SCH (08:31)
--- NOTE | 2017-01-28 08:40 | Orthopedic Progress Note ---
Orthopedic Progress Note Date of Service January 28, 2017. Subjective Post OP Day: 2 Reports: feeling well, Denies: SOB, chest pain, complaints, light headedness, nausea / vomiting Additional Notes: states he is ready to go home today Objective calves soft nontender, N/V intact, capillary refill less than 2 sec., dressing C /D/I, incision C/D/I, A&O x3, toes mobile, CMS intact wound looks very good. No drainage bandage already changed by nursing intact motor function to knee/ankle abdomen soft/nontender Date Time Temp Pulse Resp B/P Pulse Ox O2 Delivery O2 Flow Rate FiO2 01/28/17 07:59 96 Nasal Cannula 2.5 01/28/17 07:45 37.3 107 17 122/70 96 Nasal Cannula 90 01/27/17 23:15 Nasal Cannula 2.0 01/27/17 22:46 37.8 101 17 121/69 96 Nasal Cannula 2.0 01/27/17 15:22 37.2 96 18 118/76 95 Nasal Cannula 2.0 01/27/17 15:15 Nasal Cannula 2.0 01/27/17 13:11 37.0 113 20 120/67 92 01/27/17 12:04 37.5 102 16 125/75 94 Nasal Cannula 2.0 01/27/17 11:55 100 92 Nasal Cannula 2.0 01/27/17 11:48 38.2 120 21 130/70 93 Assessment & Plan Assessment: post op day 2 Left TKA Plan: continue post op care DVT prophylaxis with Lovenox 30mg BID x 4 weeks, then transition to Aspirin 325mg for 2 more weeks no NSAIDs pain control with prescribed medications TEDs in place PT/OT Dressing already changed ice/elevate left L.E. WBAT Left L.E. with walker and assist Resume diet Will discuss further with Dr. Viera Discharge Planning Discharge Planning: home with home health Pain Management: Percocet, Oxycontin DVT Prophylaxis: TEDs, SCDs, Lovenox Therapy: Physical Therapy
[2017-01-28] MEDS ORDERED: ENOX1INJ8 SQ (08:42)
[2017-01-28] MEDS ORDERED: METHYLPREDNISOLONE IV SCH (09:00)
[2017-01-28 11:44] VITALS: BP 120/80; PULSE 112; TEMP 37.4; O2SAT 90
[2017-01-28 13:24] VITALS: BP 120/80; PULSE 112; TEMP 37.4; O2SAT 90
--- NOTE | 2017-01-29 17:48 | DISCHARGE SUMMARY ---
DISCHARGE DIAGNOSES: 1. Degenerative joint disease of his left knee, status post left total knee arthroplasty on 01/26/2017. 2. Bronchial asthma. 3. Environmental allergies. 4. Polymyalgia rheumatica. 5. Urinary retention. 6. Panic disorder. ATTENDING PHYSICIAN: Dr. Jos Viera. FAMILY PHYSICIAN: Dr. Luis M Barksdale. PROCEDURES: Status post left total knee arthroplasty by Dr. Viera on 01/26/2017. HOSPITAL COURSE: The patient was admitted on 01/26/2017, had undergone an elective left total knee arthroplasty. This was performed by Dr. Jos Viera and assisted by Jazmine Roth PA-C. It was done with spinal anesthetic and peripheral nerve block. He tolerated the procedure well. He was given IV Ancef for antibiotic prophylaxis prior to within 1 hour of incision. He tolerated the procedure well without any intraoperative complications. Please see Dr. Viera's operative report for further details regarding the surgery. He was then given IV Dilaudid, OxyContin, and tramadol for postoperative pain control. NSAIDs were held due to his allergies as well as Celebrex due to his sulfa allergy. He was allowed to out of bed and weightbear as tolerated with knee immobilizer on when out of bed and assistance with a walker. Physical therapy and occupational therapy were ordered to start postoperatively as well. An x-ray was obtained of his left knee in the holding room directly after surgery, which showed arthroplasty and stable hardware in his left knee. He tolerated a regular diet after surgery. On postoperative day #1, he stated that he did have pain in his left knee, but it was controlled with oral pain medications and tolerable. He was placed on Lovenox 30 mg b.i.d. for 4 weeks postoperatively for DVT prophylaxis. This was started on postoperative day [address] Barksdale was consulted for inpatient postoperative medical management. He did have an episode of urinary retention and needed to be catheterized, but he had no episodes after that. On postoperative day #2, his dressings were changed. His incision was clean, dry and intact. New dressings were applied. He was also placed on KINGSTON stockings with foot pumps for DVT prophylaxis. He was seen by case management and in-home health was arranged. He was cleared by physical therapy and was safe to discharge to his home with his with in-home health on 01/28/2017. Discharge instructions were provided. He was instructed to follow up with Dr. Viera as scheduled. He was given preoperative Solu-Medrol dose of 100 mg. On postoperative day #1, he was given 50 mg of Solu-Medrol and on postoperative day #2, he was given 25 mg of Solu-Medrol for steroid dosing. DISCHARGE CONDITION: Stable. DISPOSITION: Discharge to home with his and in-home nursing. DISCHARGE MEDICATIONS: Include, 1. Lovenox 30 mg subQ b.i.d. x4 weeks. 2. OxyContin 10 mg p.o. q. 12 hours as needed for pain. 3. Percocet 5 mg/325 mg 1-2 tabs p.o. every 4-6 hours as needed for pain. His regular home medications were continued as prescribed. DISCHARGE INSTRUCTIONS: Discharge instructions were also provided and as in electronic health record include medication instructions. He is allowed to be out of bed, weightbear as tolerated with knee immobilizer on as needed and use of a walker to assist with ambulation. Instructed to use physical therapy at home. He will also get in-home physical therapy and in-home nursing. He is also to wear his KINGSTON stockings as much as possible. They will be able to be removed at night. Use ice every 2-3 hours as needed for pain and also instructed to elevate above the level of the heart for swelling. He can have dressing changes and showering on postoperative day #4. He was also instructed to call [facility] with any increased severe knee pain, swelling, fluid from the incision, shortness of breath or chest pain, numbness or tingling in the surgical extremity. Office phone number of [phone] was provided. FOLLOWUP: He will follow up with Dr. Viera as scheduled on 02/10/2017 at 11:45 a.m. All questions were answered. BETI
== END 2017-01-28 14:15 | disposition home health service (06) | DRG 470 ==
LOC: ENRESERVTM → ENRESERVDT → C.ACU 05:12 → C.3E 07:03
PROVIDERS: ADMIT Physical Medicine & Rehabilitation Sports Medicine; ATTEND Physical Medicine & Rehabilitation Sports Medicine
PROC: 0SRD0J9 Replacement of Left Knee Joint with Synthetic Substitute, Cemented, Open Approach (ICD-10-PCS; principal; 2017-01-26 07:00)
DX: M17.12 Unilateral primary osteoarthritis, left knee (principal); J45.909 Unspecified asthma, uncomplicated; M35.3 Polymyalgia rheumatica; M06.9 Rheumatoid arthritis, unspecified; K21.9 Gastro-esophageal reflux disease without esophagitis; F41.0 Panic disorder [episodic paroxysmal anxiety]; G89.29 Other chronic pain; F32.9 Major depressive disorder, single episode, unspecified; Z51.81 Encounter for therapeutic drug level monitoring; Z79.899 Other long term (current) drug therapy; Z82.3 Family history of stroke; Z80.6 Family history of leukemia; Z80.0 Family history of malignant neoplasm of digestive organs

== ENCOUNTER → 2017-04-22 | Outpatient (CLI) | payer BC ==
[~2017-04-22] MED LIST changes: -ACETAMINOPHEN 500 MG TAB PO SCH; -ALFU10TA2 PO; +ALFU10TA30 PO; -CEFAZOLIN 2000 MG/60 ML D5W 60 ML IV SCH; -CLONIDINE HCL 0.1 MG/24 HR TRANSDERM SYS TD SCH; -DEXAMETHASONE 4 MG TAB PO SCH; +DIPH1TAB PO; -DIPH1TAB87 PO; -EPINEPHRINE INFIL SCH; -FAMOTIDINE 20 MG TAB PO SCH; -GABAPENTIN 300 MG CAP PO SCH; -LACTATED RINGER'S 1000ML 1,000 ML IV SCH; -METHYLPREDNISOLONE IV 100 MG in SYRINGE 0 ML IV SCH; -METOCLOPRAMIDE HCL 10 MG TAB PO SCH; +OXYC-57 PO; -OXYCODONE HCL 10 MG TABCR (OXYCONTIN) PO SCH; +OXYSR10 PO; -ROPIVACAINE 5MG/ML 30 ML 100 MG, MoRPHine SULFATE 4 MG, EpINEphrine INJ 1MG/ML AMP 0.2 ... INFIL SCH; -ROPIVACAINE INFIL SCH; -TRAMADOL HCL 50 MG TAB PO SCH; -TRANEXAMIC ACID INJ 1,000 MG in SODIUM CHLORIDE 0.9% 100ML 100 ML IV SCH; -[UNRECOGNIZED DRUG - OTHER] INFIL SCH; -[UNRECOGNIZED DRUG - REMARK] SCH
== END | disposition home or self-care (01) ==
LOC: C.LAB1850 10:25
PROVIDERS: ATTEND Internal Medicine Rheumatology
DX: M35.3 Polymyalgia rheumatica (principal); Z79.52 Long term (current) use of systemic steroids

== ENCOUNTER → 2017-04-30 | Outpatient (CLI) | payer BC | END | disposition home or self-care (01) | LOC: C.RDSM 11:34 | PROVIDERS: ATTEND Physical Medicine & Rehabilitation Sports Medicine | DX: M25.562 Pain in left knee (principal); M25.561 Pain in right knee ==

== ENCOUNTER → 2017-05-20 | Outpatient (CLI) | payer BC | END | disposition home or self-care (01) | LOC: C.LAB1850 08:34 | PROVIDERS: ATTEND Internal Medicine Rheumatology | DX: Z51.81 Encounter for therapeutic drug level monitoring (principal); M35.3 Polymyalgia rheumatica; Z79.52 Long term (current) use of systemic steroids ==

== ENCOUNTER → 2017-07-19 | Outpatient (CLI) | payer BC ==
[~2017-07-19] MED LIST changes: +ALFU10TA2 PO; -ALFU10TA30 PO; -DIPH1TAB PO; +DIPH1TAB87 PO
== END | disposition home or self-care (01) ==
LOC: C.LABSPEC 12:26
PROVIDERS: ATTEND Internal Medicine
DX: Z12.11 Encounter for screening for malignant neoplasm of colon (principal)

== ENCOUNTER → 2017-07-20 | Outpatient (CLI) | payer BC ==
[2017-07-20 12:22] LABS: BASO % 0.2 %; BASO ABS # 0.01 K/uL (0-0.2); COMPLETE YES; EOS % 1.9 %; HEMATOCRIT 43.5 % (42-52); IG% 0.3 %; LYMPH % 23.2 %; LYMPH ABS # 1.36 K/uL (1.2-3.4); MEAN CELL VOLUME 87.3 fL (80-100); MEAN CORPUSCULAR HEMOGLOBIN 29.1 pg (25-34); MEAN CORPUSCULAR HGB CONC 33.3 g/dl (32-36); MEAN PLATELET VOLUME 11.1 fL (7.4-10.4); MONO % 7.5 %; NEUT % 66.9 %; PLATELET COUNT 191 K/uL (130-400); RED BLOOD COUNT 4.98 M/uL (4.7-6.1); WHITE BLOOD COUNT 5.87 K/uL (4.8-10.8)
[2017-07-20 12:44] LABS: CREATININE 0.91 mg/dl (0.60-1.40)
== END | disposition home or self-care (01) ==
LOC: C.LAB1850 10:19
PROVIDERS: ATTEND Internal Medicine Rheumatology
DX: R53.83 Other fatigue (principal); M35.3 Polymyalgia rheumatica; M65.349 Trigger finger, unspecified ring finger

== ENCOUNTER → 2017-09-22 | Outpatient (CLI) | payer BC ==
[~2017-09-22] MED LIST changes: -OXYC-57 PO
== END | disposition home or self-care (01) ==
LOC: C.LAB1850 11:00
PROVIDERS: ATTEND Internal Medicine Rheumatology
DX: M35.3 Polymyalgia rheumatica (principal); M25.561 Pain in right knee; M65.349 Trigger finger, unspecified ring finger

== ENCOUNTER → 2017-10-25 | Outpatient (CLI) | payer BC | END | disposition home or self-care (01) | LOC: C.LABBFT 13:19 | PROVIDERS: ATTEND Internal Medicine Rheumatology | DX: M35.3 Polymyalgia rheumatica (principal); Z79.52 Long term (current) use of systemic steroids; M79.646 Pain in unspecified finger(s); M65.349 Trigger finger, unspecified ring finger ==

== ENCOUNTER → 2017-10-28 | Outpatient (CLI) | payer BC ==
[2017-10-28 12:43] LABS: BASO % 0.2 %; BASO ABS # 0.01 K/uL (0-0.2); EOS % 6.8 %; EOS ABS # 0.34 K/uL (0-0.5); HEMOGLOBIN 14.5 g/dL (14.0-18.0); IG# 0.01 K/uL (0.00-0.02); LYMPH % 31.8 %; LYMPH ABS # 1.59 K/uL (1.2-3.4); MEAN CORPUSCULAR HGB CONC 33.7 g/dl (32-36); MEAN PLATELET VOLUME 10.8 fL (7.4-10.4); MONO % 7.2 %; MONO ABS # 0.36 K/uL (0.11-0.59); NEUT % 53.8 %; NEUT ABS # 2.69 K/uL (1.4-6.5); PLATELET COUNT 187 K/uL (130-400); RED CELL DISTRIBUTION WIDTH CV 14.1 % (11.5-14.5); RED CELL DISTRIBUTION WIDTH SD 45.7 fL (36.4-46.3)
[2017-10-28 12:58] LABS: ALBUMIN 3.9 gm/dl (3.4-5.0); ALKALINE PHOSPHATASE 56 U/L (45-117); ALT/SGPT 27 U/L (12-78); BLOOD UREA NITROGEN 13 mg/dl (7-18); CARBON DIOXIDE 26 mmol/L (21-32); CREATININE 0.85 mg/dl (0.60-1.40); GLUCOSE 87 mg/dl (70-99); POTASSIUM 3.8 mmol/L (3.5-5.1); SODIUM 142 mmol/L (136-145)
[2017-10-28 13:08] LABS: AST/SGOT 16 U/L (15-37); TOTAL PROTEIN 6.9 gm/dl (6.4-8.2)
[2017-11-01 14:30] LABS: ACETYLCHOLINE RECEPT BLOCKING <15 % inhibit (<15)
== END | disposition home or self-care (01) ==
LOC: C.LABBFT 08:05
PROVIDERS: ATTEND Internal Medicine
DX: R53.83 Other fatigue (principal)

== ENCOUNTER → 2017-12-02 | Outpatient (CLI) | payer BC | END | disposition home or self-care (01) | LOC: C.LABBFT 12:21 | PROVIDERS: ATTEND Internal Medicine Rheumatology | DX: M35.3 Polymyalgia rheumatica (principal); M65.349 Trigger finger, unspecified ring finger ==

== ENCOUNTER → 2017-12-02 | Outpatient (CLI) | payer BC ==
--- NOTE | 2017-12-02 13:44 | DIAGNOSTIC IMAGING REPORT ---
C-SPINE ROUTINE 4 OR 5 VIEWS CLINICAL HISTORY: Neck pain COMPARISON STUDY: 09/22/2013 FINDINGS: The prevertebral soft tissues are normal. No fractures or subluxations are visualized. There are degenerative changes most pronounced the C4-5 and C5-6 levels. There is mild right-sided foraminal narrowing the C4-5 level. No destructive lesions are evident. IMPRESSION: Degenerative changes similar to the preceding study. No acute fractures or subluxations. Electronically signed by: Alan Garsia M.D. 12/02/2017 1:42 PM Dictated Date/Time: 12/02/2017 1:42 PM
--- NOTE | 2017-12-02 13:46 | DIAGNOSTIC IMAGING REPORT ---
THORACIC SPINE 3 VIEWS ROUTINE HISTORY: Pain NECK PAIN,BACK PAIN COMPARISON: None. FINDINGS: There is no fracture. Mild scoliosis. Moderate degenerative disc change. No evidence for an acute compression deformity. Mild anterior reactive osteophyte formation. IMPRESSION: Moderate degenerative disc change. Mild scoliosis. The above report was generated using voice recognition software. It may contain grammatical, syntax or spelling errors. Electronically signed by: Gerhard Merida M.D. 12/02/2017 1:45 PM Dictated Date/Time: 12/02/2017 1:44 PM
== END | disposition home or self-care (01) ==
LOC: C.RAD 13:07
PROVIDERS: ATTEND Internal Medicine
DX: M54.2 Cervicalgia (principal); M54.9 Dorsalgia, unspecified

== ENCOUNTER → 2018-01-11 | Outpatient (CLI) | payer BC | END | disposition home or self-care (01) | LOC: C.LAB1850 10:11 | PROVIDERS: ATTEND Internal Medicine Rheumatology | DX: M35.3 Polymyalgia rheumatica (principal); Z79.52 Long term (current) use of systemic steroids; T14.8XXA Other injury of unspecified body region, initial encounter; X58.XXXA Exposure to other specified factors, initial encounter ==

== ENCOUNTER → 2018-03-24 | Outpatient (CLI) | payer BC ==
[~2018-03-24] MED LIST changes: -ACET-1256 PO; +ACET500T58 PO; -ALBU0.5N2 NEB; +ALBU18002 INH; -ALBU1AER9 INH; +ALPR1TAB3 PO; +AZITTAB PO; -CETI10TA84 PO; -CLON2TAB PO; -FLUO10CA48 PO; +FLUO20CA20 PO; -FLUT1INH INH; +LEVO75TA PO; -OXYSR10 PO; -PRD/1 PO; +PRVIN525X
== END | disposition home or self-care (01) ==
LOC: C.LABBFT 09:52
PROVIDERS: ATTEND Internal Medicine Rheumatology
DX: M35.3 Polymyalgia rheumatica (principal); M65.349 Trigger finger, unspecified ring finger; T14.8XXA Other injury of unspecified body region, initial encounter; X58.XXXA Exposure to other specified factors, initial encounter

== ENCOUNTER → 2018-04-29 | Outpatient (CLI) | payer BC ==
--- NOTE | 2018-04-29 12:29 | DIAGNOSTIC IMAGING REPORT ---
RIGHT FOOT 3 VIEWS CLINICAL HISTORY: Right foot pain. FINDINGS: 3 views of the right foot are obtained. No prior studies are available for comparison at the time of dictation. The skeletal structures are well mineralized for age. No fracture is seen. Minimal arthritic change is noted the first metatarsophalangeal joint. There is no radiographic evidence of Lisfranc injury. Degenerative spurring is seen along the dorsal aspect of the tarsal bones. There is a plantar calcaneal enthesophyte. The overlying soft tissues are within normal limits. IMPRESSION: Mild degenerative change as above. No acute osseous abnormality is seen. Electronically signed by: Christopher Bhatti M.D. 04/29/2018 12:28 PM Dictated Date/Time: 04/29/2018 12:27 PM
== END | disposition home or self-care (01) ==
LOC: C.RAD 11:09
PROVIDERS: ATTEND Internal Medicine
DX: M79.671 Pain in right foot (principal)

== ENCOUNTER 2019-07-18 04:49 | Inpatient (IN) ==
--- NOTE | 2019-06-16 16:21 | PAT Medication Instructions ---
Medication Instructions Date of Service June 16, 2019 Home Medications Medications Dulera 2 puff INHALATION BID Trintellix 10 mg PO QAM acetaminophen [Tylenol Extra Strength] 1,000 mg PO TID albuterol sulfate 2.5 mg INHALATION Q6 PRN albuterol sulfate [ProAir HFA] 2 puff INHALATION Q4 PRN alfuzosin 10 mg PO HS alprazolam [Xanax] 0.5 mg PO 1200 alprazolam [Xanax] 1 mg PO BID azithromycin 250 mg PO UD diphenhydramine HCl [Benadryl] 25 - 50 mg PO Q4 PRN levothyroxine [Synthroid] 75 mcg PO QAM pregabalin [Lyrica] 150 mg PO BID tramadol 100 mg PO QID esomeprazole magnesium [Nexium] 40 mg PO QAM clobetasol 1 applic TOPICAL DAILY PRN hydrocodone-acetaminophen 1 tab PO Q6H PRN Continue as directed azithromycin 250 mg PO UD STOP taking 24 hours before surgery clobetasol 1 applic TOPICAL DAILY PRN DO NOT take the morning of surgery diphenhydramine HCl [Benadryl] 25 - 50 mg PO Q4 PRN Take morning of surgery Dulera 2 puff INHALATION BID Trintellix 10 mg PO QAM acetaminophen [Tylenol Extra Strength] 1,000 mg PO TID (okay to take up to 4 macey rs prior to surgery if needed) albuterol sulfate 2.5 mg INHALATION Q6 PRN (use if needed; please bring with you to hospital day of surgery if possible) albuterol sulfate [ProAir HFA] 2 puff INHALATION Q4 PRN (if needed) alprazolam [Xanax] 1 mg PO BID levothyroxine [Synthroid] 75 mcg PO QAM pregabalin [Lyrica] 150 mg PO BID tramadol 100 mg PO QID (okay to take up to 4 hours prior to surgery if needed) esomeprazole magnesium [Nexium] 40 mg PO QAM hydrocodone-acetaminophen 1 tab PO Q6H PRN (okay to take up to 4 hours prior to surgery if needed) Take evening before surgery Dulera 2 puff INHALATION BID acetaminophen [Tylenol Extra Strength] 1,000 mg PO TID albuterol sulfate 2.5 mg INHALATION Q6 PRN (if needed) albuterol sulfate [ProAir HFA] 2 puff INHALATION Q4 PRN (if needed) alfuzosin 10 mg PO HS alprazolam [Xanax] 1 mg PO BID diphenhydramine HCl [Benadryl] 25 - 50 mg PO Q4 PRN (if needed) pregabalin [Lyrica] 150 mg PO BID tramadol 100 mg PO QID hydrocodone-acetaminophen 1 tab PO Q6H PRN (if needed) Other Notes If you have any questions please call us at [phone] or [phone] or [phone] or [phone]
--- NOTE | 2019-06-19 12:18 | Anesthesiology Consultation ---
Date of Service June 19, 2019 History Surgery Operation Date: 07/18/19 07:00 Proposed Procedures p Right Total Knee Arthroplasty - Jos Viera MD Height/Weight Height: 6 ft 1 in Weight: 100.2 kg Allergies Allergy/AdvReac Type Severity Reaction Status Date / Time aspirin Allergy Severe Anaphylaxis Verified 06/15/19 09:05 Bactrim Allergy Severe SHORTNESS Verified 02/10/18 07:33 OF BREATH cat dander Allergy Severe TRIGGERS Verified 06/15/19 09:05 ASTHMA codeine Allergy Severe induces Verified 06/15/19 09:05 asthma attack mold Allergy Severe TRIGGERS Verified 06/15/19 09:05 ASTHMA NSAIDS (Non-Steroidal Allergy Severe Anaphylaxis Verified 06/15/19 09:05 Anti-Inflamma sulfamethoxazole Allergy Severe induces Verified 06/15/19 09:05 asthma trimethoprim Allergy Severe induces Verified 06/15/19 09:05 asthma Sulfa (Sulfonamide Allergy Unknown TRIGGERS Verified 06/15/19 09:05 Antibiotics) ASTHMA & sob [place] Allergy Severe TRIGGERS Uncoded 06/15/19 09:05 ASTHMA Medications Home Medications Medication Instructions Recorded Confirmed Last Taken Dulera 2 puff INHALATION BID 12/26/18 06/15/19 04/10/19 Trintellix 10 mg PO QAM 12/26/18 06/15/19 04/11/19 05:00 acetaminophen [Tylenol Extra 1,000 mg PO TID 12/26/18 06/15/19 04/10/19 Strength] albuterol sulfate 2.5 mg INHALATION Q6 PRN 12/26/18 06/15/19 04/10/19 albuterol sulfate [ProAir HFA] 2 puff INHALATION Q4 PRN 12/26/18 06/15/19 Unknown alfuzosin 10 mg PO HS 12/26/18 06/15/19 04/10/19 alprazolam [Xanax] 0.5 mg PO 1200 12/26/18 06/15/19 04/10/19 alprazolam [Xanax] 1 mg PO BID 12/26/18 06/15/19 04/11/19 05:00 azithromycin 250 mg PO UD 12/26/18 06/15/19 01/05/19 09:00 diphenhydramine HCl [Benadryl] 25 - 50 mg PO Q4 PRN 12/26/18 06/15/19 Unknown levothyroxine [Synthroid] 75 mcg PO QAM 12/26/18 06/15/19 04/11/19 05:00 pregabalin [Lyrica] 150 mg PO BID 12/26/18 06/15/19 04/11/19 05:00 tramadol 100 mg PO QID 12/26/18 06/15/19 04/11/19 05:00 esomeprazole magnesium [Nexium] 40 mg PO QAM 03/21/19 06/15/19 04/11/19 05:00 clobetasol 1 applic TOPICAL DAILY PRN 06/15/19 06/15/19 Unknown hydrocodone-acetaminophen 1 tab PO Q6H PRN 06/15/19 06/15/19 Unknown Past Medical History Medical History Anxiety Asthma BPH (benign prostatic hyperplasia) Bronchiectasis F/U DR AMIN Q 4-6 MONTHS Chronic back pain Depression Duodenal ulcer HX AGE 32 Fibromyalgia GERD (gastroesophageal reflux disease) Hiatal hernia History of duodenal ulcer History of esophageal dilatation History of esophageal stricture Hypothyroidism Irregular heart beat HX-RELATED TO MEDICATION-6 MONTHS AGO THRU PCP/STRESS TEST [facility] 2013?-HEART FINE PER PT Ocular migraine HX Osteoarthritis Polymyalgia rheumatica Wrinkled retina, right eye Past Family History Family History Father Family hx of colon cancer Other No family history of adverse response to anesthesia Past Surgical History Surgical History History of arthroscopy of left knee History of arthroscopy of right knee History of cardiac cath 15-20 YRS AGO NO STENTS NEEDED History of cataract surgery right History of cervical spinal surgery radiofrequency pain management procedure -- normal ROM History of colonoscopy History of detached retina repair right eye History of endoscopic sinus surgery x2 History of esophagogastroduodenoscopy (EGD) History of lumbar laminectomy History of oral surgery gum surgery History of thoracic surgery SPINAL SURGERY History of tonsillectomy and adenoidectomy History of total left knee replacement (TKR) History of trigger finger right hand ring finger History of wisdom tooth extraction Hx of left inguinal hernia repair Social History Smoking Status: Former smoker tobacco type: cigarettes Smoking End Date: ~1978 Hx Alcohol Use: Yes (RARELY) Alcohol type: beer alcohol intake frequency: other Hx Substance Use: No substance use type: does not use Review of Systems Constitutional: no fever and no chills Respiratory: no cough, no dyspnea and no wheezing Cardiovascular: no chest pain with activity and no dyspnea Gastrointestinal: no abdominal pain Musculoskeletal: + myalgia (work up for flare of polymyalgia rheumatica) Physical Exam Vital Signs Last Vital Signs Temp 36.4 C 06/19/19 11:49 Pulse 80 06/19/19 11:49 Resp 18 06/19/19 11:49 BP 111/75 06/19/19 11:49 Pulse Ox 97 06/19/19 11:49 Constitutional no acute distress, not morbidly obese and no altered mental status ENMT Mouth: no TMJ abnormality and motion of mouth not restricted Mallampati Class: II Neck normal visual inspection and trachea midline; neck extension not limited Respiratory normal respiratory effort; no respiratory distress Auscultation: + wheezes (expiratory wheeze right lower lung) Cardiovascular Rate/Rhythm: regular rate and regular rhythm Musculoskeletal Spine: normal cervical ROM Neurologic moves all extremities Motor/Sensory: + sensory deficit Psychiatric Orientation: alert and oriented x 3
[2019-06-19 12:52] LABS: Basophils # (auto) 0.03 K/uL (0-0.2); Basophils % (auto) 0.5 %; Eosinophils # (auto) 0.06 K/uL (0-0.5); Eosinophils % (auto) 0.9 %; Hematocrit (blood only) 42.2 % (42-52); Hemoglobin 14.2 g/dL (14.0-18.0); Immature Granulocytes # (auto) 0.01 K/uL (0.00-0.02); Immature Granulocytes % (auto) 0.2 %; Lymphocytes # (auto) 1.41 K/uL (1.2-3.4); Lymphocytes % (auto) 21.8 %; Mean Corpuscular Hemoglobin 30.9 pg (25-34); Mean Corpuscular Hgb Conc 33.6 g/dL (32-36); Mean Corpuscular Volume 91.7 fL (80-100); Mean Platelet Volume 10.9 fL (7.4-10.4); Monocytes # (auto) 0.44 K/uL (0.11-0.59); Monocytes % (auto) 6.8 %; Neutrophils # (auto) 4.53 K/uL (1.4-6.5); Neutrophils % (auto) 69.8 %; Platelet Count 213 K/uL (130-400); RDW Coefficient of Variation 13.9 % (11.5-14.5); RDW Standard Deviation 46.7 fL (36.4-46.3); White Blood Count 6.48 K/uL (4.8-10.8)
[2019-06-19 13:00] LABS: BUN Creatinine Ratio 14.8 (10-20); Calcium 9.1 mg/dl (8.5-10.1); Creatinine Clr Calc Pharmacy 103.8 ml/min; Est GFR (Non-African American) 89.7; Potassium 4.3 mmol/L (3.5-5.1)
[2019-06-19 13:10] LABS: Prothrombin Time 10.4 Seconds (9.0-12.0)
[2019-07-18] MEDS ORDERED: dexAMETHasone 4 MG TAB PO SCH (06:00)
[2019-07-18] MEDS ORDERED: EPINEPHRINE INFIL SCH (06:00)
[2019-07-18] MEDS ORDERED: TRANEXAMIC ACID 1,000 MG **IV Pre-op IV SCH (06:00)
[2019-07-18] MEDS ORDERED: HCL INFIL SCH (06:00)
[2019-07-18] MEDS ORDERED: TRAMADOL HCL 50 MG TABLET PO SCH (06:00)
[2019-07-18] MEDS ORDERED: LR 60ML/HR IV SCH (06:00)
[2019-07-18] MEDS ORDERED: METOCLOPRAMIDE HCL 10 MG TABLET PO SCH (06:00)
[2019-07-18] MEDS ORDERED: FAMOTIDINE 20 MG TAB PO SCH (06:00)
[2019-07-18] MEDS ORDERED: CEFAZOLIN 2000MG 2,000 MG/15 ML SYR IV SCH (06:00)
[2019-07-18] MEDS ORDERED: BUPIVACAINE 0.5% INFIL SCH (06:00)
[2019-07-18] MEDS ORDERED: [UNRECOGNIZED DRUG - OTHER] INFIL SCH (06:00)
[2019-07-18] MEDS ORDERED: LR 500ML BOLUS, THEN 15ML/HR IV SCH (06:00)
[2019-07-18] MEDS ORDERED: OXYCODONE HCL 10 MG TABCR (OXYCONTIN) PO SCH (06:00)
[2019-07-18] MEDS ORDERED: ACETAMINOPHEN 500 MG TAB PO SCH (06:00)
[2019-07-18] MEDS ORDERED: cloNIDine HCL 0.1 MG/24 HR TRANSDERM SYS TD SCH (06:00)
[2019-07-18] MEDS ORDERED: ROPIVACAINE 0.5% INFIL SCH (06:00)
[2019-07-18] MEDS ORDERED: GABAPENTIN 300 MG CAP PO SCH (06:00)
[2019-07-18] MEDS ORDERED: BUPIVACAINE 0.5 % 5 MG/1 ML PF 10ML VIAL ONE (06:19)
[2019-07-18] MEDS ORDERED: BUPIVACAINE 0.25% 30 ML VIAL ONE (06:19)
[2019-07-18] MEDS ORDERED: TRANEXAMIC ACID 1,000 MG **IV Intra-op IV SCH (06:30)
--- NOTE | 2019-07-18 06:33 | History & Physical Bridge Note ---
Date of Service July 18, 2019 History & Physical Bridge Note I have examined the patient, reviewed the History & Physical and in the interval since the performance of the History & Physical I have noted the following changes of clinical significance: no changes noted
[2019-07-18] MEDS ORDERED: ePHEDrine sulfate 50 MG/ML AMP IV PRN (06:36)
[2019-07-18] MEDS ORDERED: ORTHO JOINT ANESTHETIC ONE (06:36)
[2019-07-18] MEDS ORDERED: VANCOMYCIN HCL 1000MG/20ML VIAL ONE (06:36)
[2019-07-18] MEDS ORDERED: ATROPINE SULFATE 0.1 MG/ML 10ML SYR IV PRN (06:36)
[2019-07-18] MEDS ORDERED: ONDANSETRON INJ 2 MG/ML 2 ML VIAL IV PRN ×2 (06:36→10:35)
[2019-07-18] MEDS ORDERED: BACITRACIN INJ 50,000 UNIT VIAL ONE (06:36)
[2019-07-18] MEDS ORDERED: fentaNYL citrate 100 MCG/2 ML VIAL IV PRN (06:36)
[2019-07-18] MEDS ORDERED: fentaNYL citrate 100 MCG/2 ML VIAL ONE (06:38)
[2019-07-18] MEDS ORDERED: PROPOFOL IV EMULSION 10 MG/ML 20 ML VIAL IV ONE ×2 (06:38→09:27)
[2019-07-18] MEDS ORDERED: MIDAZOLAM HCL 1 MG/ML 2ML VIAL ONE ×2 (06:38→07:22)
[2019-07-18] MEDS ORDERED: LIDOCAINE HCL 2% 2 ML VIAL/AMP(20MG/ML) INFIL ONE (06:38)
--- NOTE | 2019-07-18 09:34 | Operative Report ---
Post Operative Report Pre & Post Diagnosis Operation Date: 07/18/19 07:00 Pre-Op Diagnosis: Right Knee Osteoarthritis Post-Op Diagnosis: Right Knee Osteoarthritis I identified the patient and participated in the time-out.: Yes Procedure Operation Date: 07/18/19 07:00 Actual Procedures p Right Total Knee Arthroplasty(Right) - Jos Viera MD Surgeon Jos Viera MD Bioinformatician Dr. Rea and Jazmine Roth Estimated Blood Loss 10 Findings Consistent with Post-Op Diagnosis Specimens Bone and soft tissue Drains None Anesthesia Type MAC Spinal Regional Complications none Disposition Accompanied Patient To Recovery: No Disposition: Recovery Room Indications Patient 69 years old. Has end-stage arthritis of the right knee. Refractory to nonsurgical methods of management. Had prior successful left knee replacement. Description of Procedure Informed consent obtained. Patient identified. He identified the operative site as the right knee. I marked with my initials and a preop surgical timeout was performed. A preop dose of intravenous antibiotics was given. He was positioned supine on the OR table with a tourniquet on the right thigh a bump under the right calf and right hip. The examination revealed range of motion 0/3/130 with mild varus deformity and no significant ligamentous laxity. DVT prophylaxis with foot pumps and postoperatively early mobility and Lovenox. The leg was prepped and draped in usual sterile fashion Limb exsanguinated with the Esmarch. Tourniquet inflated to 250 mmHg. Midline longitudinal incision was made followed by medial parapatellar arthrotomy. Soft tissue on the anterior aspect of the distal femur and in the retropatellar fat pad was resected. The synovial reflection in the lateral gutter was divided. An extensile medial release was performed back around to the semimembranosus tendon. Osteophytes throughout the knee particularly on the medial side were removed. The patella was everted easily and the knee flexed. Cruciate ligaments were intact and were sacrificed. There were grade 4 changes on the median ridge and medial aspect of the patella and grade 4 changes with bone wear on the medial side of the tibia and femur. Large osteophytes were noted. 5 loose bodies were eventually evacuated from the back of the knee. The medial meniscus was deficient. Lateral meniscus and lateral compartment relatively normal. The tibia was subluxated and a chief pilot hole was drilled just in front of the lateral tibial spine. An intramedullary alignment adina was inserted. The 0 degree cutting block was applied pinned into place set to take 10 mm off of the lateral side. The alignment adina was utilized and there was a slight varus cut. I therefore used a 2 degree valgus cutting block. Cut was made with 0 degrees slope. Tibia was sized to a 4. 5 was just slightly too big rotationally. I then went ahead and drilled a chief pilot hole into the distal femur followed by the distal femoral cutting guide set at 7 degrees right knee valgus alignment 12 mm thick cut. This was pinned into place and the cut was made in the flexion gap was initially a asymmetric 10 more tight medially. This was addressed with further posterior medial releases for a symmetric 10 mm extension gap. The epicondylar axis was marked out and the distal femoral sizing guide was applied. Sized to a #5. The external rotation drill holes were made which matched the epicondylar axis. Size 5 anterior down cutting block was applied and pinned in place. Cuts were made protecting the collateral ligaments. Box cutting guide was applied and lateralized and the box cut was made. Posterior osteophytes and loose bodies were removed along with remnants of the medial meniscus. A size 5 trial was applied. The tibia was exposed. The size 4 was applied lateralized and oriented appropriately rotationally. It was pinned in place and the keel was prepared with the drill and punch. Trialing with the size 10 thick implant revealed full extension normal patellar tracking no lift off with flexion beyond 90. No laxity at 0 90 and 1+ LCL laxity in mid position. The patella measured 25 mm in thickness. The guide was set to preserve 16 mm of bone. The patellar cut was made preserving 15 mm. The composite thickness at the end was 25. Drilling was made in the sclerotic bone of the patella and tibia. Some cartilage on the lateral surface of the patella was removed. The 38 oval dome patella was the appropriate size as the 41 was too large. This was appropriately aligned and the lug holes were drilled. Patellar tracking was fine. Trial components were removed after trialing. Canals were plugged and the bony surfaces were meticulously prepared with pulse lavage. Ortho joint mix injected in the back of the knee. No NSAIDs were utilized. 2 bags of Simplex P cement were then mixed and while in a doughy state the components were cemented into place. Femur tibia patella. The knee was helpful extension until the cement hardened at 90 minutes. The tourniquet was then let down. While the cement was hardening the remainder of the Ortho joint mix was injected and Betadine lavage and pulse lavage with sterile saline was performed. Trialing was again performed and the 10 mm thick implant was selected and applied. When the t ourniquet was let down meticulous hemostasis was done with electrocautery. The back the knee was inspected and there is no notable cement. Some cement fragments around the margins of the implants were removed. Back of the knee copiously irrigated. The knee had full extension and gravity assisted flexion with the extensor mechanism closed 125 degrees. The extensor mechanism was closed with #2 FiberWire above the equator the patella with interrupted [id number] stitches. Below the equator with running and interrupted #1 Vicryl. The skin was closed in layers with zero 2-0 Vicryl jose manuel on the skin. A soft sterile dressing was applied Xeroform 4 x 4's ABD full-length Pilo wrap. Cast padding. Patient was awakened from anesthesia without difficulty and taken to the recovery room in stable condition. The resected bone was sent for specimen. There were no complications. Counts were correct. Blood loss is estimated to be 10 cc. An additional dose of TXA was given at the end of the case. I spoke to patient's informed her of my findings. Postoperative instructions are given. He will be rehabilitated according to the standard total knee protocol. Lovenox will begin the evening of surgery 12 hours postoperatively. Components inserted with a J[employer]J PFC Sigma rotating platform knee size 5 right posterior stabilized femur, a size 4 mobile-bearing keeled tibial tray. A 38 mm oval dome patella and a size 10 mm thick size 5 tibial spacer. Posterior stabilized. I attest to the content of the Intraoperative Record and any orders documented therein. Any exceptions are noted below.
--- NOTE | 2019-07-18 09:48 | Operative Report ---
Post Operative Report Pre & Post Diagnosis Operation Date: 07/18/19 07:00 Pre-Op Diagnosis: Right Knee Osteoarthritis Post-Op Diagnosis: Right Knee Osteoarthritis I identified the patient and participated in the time-out.: Yes Procedure Operation Date: 07/18/19 07:00 Actual Procedures p Right Total Knee Arthroplasty(Right) - Jos Viera MD Surgeon Jos Viera M.D. Warehouse Delivery Driver Dr. Rea, Fellow and Jazmine Roth PA-C Estimated Blood Loss 10 Findings Consistent with Post-Op Diagnosis Specimens bone and soft tissue Drains None Anesthesia Type Spinal MAC Complications none Description of Procedure Patient was taken to the operating room, placed under spinal sedation with peripheral nerve block right lower extremity. He was given 2gm IV Ancef for surgical prophylaxis. Time out performed, prepped and draped in routine sterile fashion. I was present during the entire case, please see Dr. Viera's operative report for further detail. Patient was awakened and taken to the recovery room in stable condition. I attest to the content of the Intraoperative Record and any orders documented therein. Any exceptions are noted below.
--- NOTE | 2019-07-18 09:49 | Operative Report ---
Post Operative Report Pre & Post Diagnosis Operation Date: 07/18/19 07:00 Pre-Op Diagnosis: Right Knee Osteoarthritis Post-Op Diagnosis: Right Knee Osteoarthritis I identified the patient and participated in the time-out.: Yes Procedure Operation Date: 07/18/19 07:00 Actual Procedures p Right Total Knee Arthroplasty(Right) - Jos Viera MD Surgeon Jos Viera MD Educational Speech Language Clinician Dr. Rea and Jazmine Roth Estimated Blood Loss 10 Findings Consistent with Post-Op Diagnosis Specimens as per the procedure notes Complications none Disposition Accompanied Patient To Recovery: Yes Disposition: Recovery Room Description of Procedure Supine, standard prep and drape, tourniquet control, time out Right Total Knee Arthroplasty Please see Dr Viera's procedure notes for specific details I was present throughtout the procedure, assisted for wound closure and transferred the patient to PACU in stable condition I attest to the content of the Intraoperative Record and any orders documented therein. Any exceptions are noted below.
--- NOTE | 2019-07-18 10:04 | Anesthesiology Progress Note ---
Date of Service July 18, 2019 Anesthesia Post Procedure Vital Signs Vital Signs: Temp Pulse Pulse Resp BP BP Pulse Ox 07/18/19 09:55 88 15 100/61 99 07/18/19 09:45 87 13 116/70 98 07/18/19 09:37 36.6 C 101 H 12 117/65 99 07/18/19 05:32 36.9 C 77 18 127/77 94 Pain Intensity Abdomen: Pain Intensity: 1 Transfer of Care Handoff Completed per policy Notes Mental Status: alert / awake / arousable and participated in evaluation Patient Amnestic to Procedure: Yes Nausea / Vomiting: adequately controlled Pain: adequately controlled Airway Patency, RR, SpO2: stable & adequate BP & HR: stable & adequate Hydration State: stable & adequate Neuraxial Anesthesia: was administered and sensory block is resolving Anesthetic Complications: no major complications apparent and Pt Satisfied with anesthetic care
--- NOTE | 2019-07-18 10:09 | XRay Report ---
XR knee RT 1 or 2V routine CLINICAL HISTORY: Surgical Post Op COMPARISON: 06/19/2019 DISCUSSION: There are postsurgical changes of a total right knee arthroplasty and patellar resurfacin g. The femoral and tibial components appear well seated. There is soft tissue gas consistent with rec ent surgery. There are overlying skin jose manuel. IMPRESSION: Postsurgical changes of a total right knee arthroplasty. Electronically signed by: Alan Garsia M.D. 07/18/2019 10:08 AM
[2019-07-18] MEDS ORDERED: SODIUM CHLORIDE 0.9% 1000ML 1,000 ML IV SCH ×2 (10:35→17:30)
[2019-07-18] MEDS ORDERED: MAGNESIUM HYDROXIDE SUSP 30 ML UDC PO PRN (10:35)
[2019-07-18] MEDS ORDERED: DiphenhydrAMINE HCL 50 MG/ML VIAL IV PRN (10:35)
[2019-07-18] MEDS ORDERED: BISACODYL 10 MG SUPP PR PRN (10:35)
[2019-07-18] MEDS ORDERED: HydrALAZINE 10 MG TAB PO PRN (10:35)
[2019-07-18] MEDS ORDERED: METOCLOPRAMIDE HCL INJ 5 MG/ML 2 ML VIAL IV PRN (10:35)
[2019-07-18] MEDS ORDERED: NALOXONE HCL 0.4 MG/1 ML VIAL/CARP IV PRN ×2 (10:35→17:20)
[2019-07-18] MEDS ORDERED: ALBUTEROL 0.083% NEBU SOLN 3 ML VIAL INH PRN (10:35)
[2019-07-18] MEDS ORDERED: TAMSULOSIN HCL 0.4 MG CAP PO PRN (10:35)
[2019-07-18] MEDS ORDERED: ALBUTEROL HFA 8 GM INHALER INH PRN (10:58)
[2019-07-18] MEDS: CHECK CLONIDINE PATCH PLACEMENT SCH ×3 (10:59→16:12)
[2019-07-18] MEDS: ALPRAZolam 0.5 MG TABLET PO SCH ×2 (11:47→17:00)
[2019-07-18] MEDS: OXYCODONE HCL IR 5 MG TAB (IMMEDIATE RELEASE) PO PRN ×2 (12:48→17:00)
[2019-07-18] MEDS: HYDROmorphone INJ 0.5 MG/0.5 ML SYR IV PRN ×2 (13:32→15:19)
[2019-07-18] MEDS: ACETAMINOPHEN 500 MG TAB PO SCH ×2 (13:32→13:57)
[2019-07-18] MEDS: TRAMADOL HCL 50 MG TABLET PO PRN (13:58)
[2019-07-18] MEDS: CEFAZOLIN 2000MG 2,000 MG/15 ML SYR IV SCH ×2 (14:00→22:07)
--- NOTE | 2019-07-18 14:38 | Anesthesiology Progress Note ---
Date of Service July 18, 2019 Anesthesia Post Procedure Vital Signs Vital Signs: Temp Pulse Pulse Resp BP BP Pulse Ox 07/18/19 14:04 36.5 C 94 H 18 126/72 94 07/18/19 12:54 100 H 16 124/81 96 07/18/19 11:30 86 18 121/77 93 07/18/19 11:05 36.4 C L 82 16 108/72 95 07/18/19 10:30 37 C 83 16 109/71 94 07/18/19 10:05 36.5 C 87 18 115/70 100 07/18/19 09:55 88 15 100/61 99 07/18/19 09:45 87 13 116/70 98 07/18/19 09:37 36.6 C 101 H 12 117/65 99 07/18/19 05:32 36.9 C 77 18 127/77 94 Pain Intensity Abdomen: Pain Intensity: 1 Notes Notes: Called by nursing on third floor as patient with complaints of mild left eye irritation. Examined the eye, no obvious deformity or object appreciated. No vision changes. Thought this could be a mild abrasion or drying injury. Wrote for erythromycin ointment x 3 days and patient agreed with the plan. Anesthesia provider will f/u tomorrow on routine rounds.
[2019-07-18] MEDS: ERYTHROMYCIN OP OINT 1 GM PKT OP SCH ×2 (14:39→20:52)
[2019-07-18] MEDS ORDERED: HYDROmorphone INJ 1 MG/ML SYRINGE IV PRN (16:17)
[2019-07-18] MEDS ORDERED: PREGABALIN 150 MG CAP PO ONE (16:59)
[2019-07-18] MEDS: PREGABALIN 150 MG CAP PO SCH (17:00)
[2019-07-18] MEDS ORDERED: HYDROmorphone PCA 30 MG/30 ML IV PRN (17:20)
[2019-07-18] MEDS: HYDROmorphone INJ 2 MG/ML SYR/VIAL IV PRN ×3 (17:32→21:33)
--- NOTE | 2019-07-18 17:56 | Progress Note ---
DATE: 07/18/2019 Pain. Increasing dose of Dilaudid. He is now out of bed, sitting in a chair but does appear uncomfortable. Takes Ultram as an outpatient. Breathing okay. No numbness or tingling. Vital signs are stable, afebrile. X-ray showed good component positioning without complication. The posterior tib is 1+. Ankle and toe plantar flexion, dorsiflexion strength is 5/5. There is no pain with passive movement of the ankle or toes. Brace is loosened. He is status post right total knee arthroplasty. PLAN: Discussed that everything went well with surgery. We will increase the dose of Dilaudid and if that is not effective, we will go ahead and put him on Dilaudid MARKET MASTER through pharmacy. We will follow up with him in the morning. Continue routine postoperative care, antibiotics. Start Lovenox. PT. We talked about the use of immobilizer when up and about.
[2019-07-18] MEDS: MOMETASONE/FORMOTEROL INH SCH (19:35)
[2019-07-18] MEDS: ENOXAPARIN INJ 30 MG/0.3 ML SYR SQ SCH (20:52)
[2019-07-18] MEDS: DOCUSATE SODIUM 100 MG CAP PO SCH (20:52)
[2019-07-18] MEDS ORDERED: SENNA 8.6 MG TAB PO SCH (21:00)
[2019-07-18] MEDS ORDERED: ALFUZOSIN HCL 10 MG TAB PO SCH (21:00)
[2019-07-19] MEDS: HYDROmorphone INJ 2 MG/ML SYR/VIAL IV PRN ×5 (00:26→11:15)
[2019-07-19] MEDS: CHECK CLONIDINE PATCH PLACEMENT SCH ×3 (00:37→16:03)
[2019-07-19] MEDS: OXYCODONE HCL IR 5 MG TAB (IMMEDIATE RELEASE) PO PRN ×4 (01:28→16:58)
[2019-07-19] MEDS: ACETAMINOPHEN 500 MG TAB PO SCH ×2 (05:06→13:14)
[2019-07-19 05:10] LABS: Hematocrit (blood only) 40.9 % (42-52); Hemoglobin 13.5 g/dL (14.0-18.0); Mean Corpuscular Hemoglobin 30.5 pg (25-34); Mean Corpuscular Volume 92.3 fL (80-100); Mean Platelet Volume 10.7 fL (7.4-10.4); Platelet Count 192 K/uL (130-400); RDW Coefficient of Variation 13.5 % (11.5-14.5); RDW Standard Deviation 45.4 fL (36.4-46.3); Red Blood Count 4.43 M/uL (4.7-6.1); White Blood Count 14.93 K/uL (4.8-10.8)
[2019-07-19 05:55] LABS: BUN Creatinine Ratio 20.4 (10-20); Calcium 9.3 mg/dl (8.5-10.1); Creatinine Clr Calc Pharmacy 90.3 ml/min; Est GFR (African American) 100.7; Est GFR (Non-African American) 86.9; Potassium 4.3 mmol/L (3.5-5.1)
[2019-07-19] MEDS: TRAMADOL HCL 50 MG TABLET PO PRN (06:09)
[2019-07-19] MEDS ORDERED: LEVOTHYROXINE SODIUM 75 MCG TABLET PO SCH (06:30)
[2019-07-19] MEDS: ALPRAZolam 0.5 MG TABLET PO SCH ×2 (07:49→11:15)
[2019-07-19] MEDS: DOCUSATE SODIUM 100 MG CAP PO SCH (07:51)
[2019-07-19] MEDS: ENOXAPARIN INJ 30 MG/0.3 ML SYR SQ SCH (07:51)
[2019-07-19] MEDS: MOMETASONE/FORMOTEROL INH SCH (07:51)
[2019-07-19] MEDS: ERYTHROMYCIN OP OINT 1 GM PKT OP SCH ×2 (07:51→13:06)
[2019-07-19] MEDS ORDERED: dexAMETHasone 4 MG TAB PO SCH (08:00)
[2019-07-19] MEDS: PREGABALIN 150 MG CAP PO SCH (08:12)
--- NOTE | 2019-07-19 08:40 | Anesthesiology Progress Note ---
Date of Service July 19, 2019 Anesthesia Post Procedure Vital Signs Vital Signs: Temp Pulse Pulse Pulse Resp BP Pulse Ox 07/19/19 08:06 117 H 92 07/19/19 07:16 36.4 C L 110 H 14 140/84 88 L 07/19/19 03:30 36.7 C 101 H 17 126/78 92 07/19/19 00:41 94 H 07/18/19 23:22 36.8 C 107 H 17 134/81 90 07/18/19 19:11 36.6 C 101 H 16 122/77 92 07/18/19 15:02 36.6 C 94 H 18 126/83 93 07/18/19 14:04 36.5 C 94 H 18 126/72 94 07/18/19 12:54 100 H 16 124/81 96 07/18/19 11:30 86 18 121/77 93 07/18/19 11:05 36.4 C L 82 16 108/72 95 07/18/19 10:30 37 C 83 16 109/71 94 07/18/19 10:05 36.5 C 87 18 115/70 100 07/18/19 09:55 88 15 100/61 99 07/18/19 09:45 87 13 116/70 98 07/18/19 09:37 36.6 C 101 H 12 117/65 99 Pain Intensity Abdomen: Pain Intensity: 1 Right Knee: Pain Intensity: 9 Notes Mental Status: alert / awake / arousable Patient Amnestic to Procedure: Yes Nausea / Vomiting: adequately controlled Pain: see Notes below (pt has not recieved pain medication yet at time of pain evaluation;) Airway Patency, RR, SpO2: stable & adequate BP & HR: stable & adequate Hydration State: stable & adequate Neuraxial Anesthesia: was administered and sensory block resolved Anesthetic Complications: no major complications apparent Notes: pt does not wish to have a spinal in the future;
[2019-07-19] MEDS ORDERED: MULTIVITAMIN TAB PO SCH (09:00)
[2019-07-19] MEDS ORDERED: PANTOprazole 40 MG TAB PO SCH (09:00)
[2019-07-19] MEDS ORDERED: VORTIOXETINE HYDROBROMIDE PO SCH (09:00)
--- NOTE | 2019-07-19 10:44 | Orthopedic Progress Note ---
Date of Service July 19, 2019 Assessment & Plan (1) Degenerative joint disease of knee, right: POD 1 - s/p right total knee arthroplasty Ice to right knee Allowed to be out of bed, weight bear as tolerated right lower extremity May discontinue knee immobilizer right lower extremity PT/OT as ordered Pain medication as prescribed, but recommended trying oral pain medications today to see how they control his pain in preparation for discharge. If he's unable to tolerate pain without IV meds then will have him stay another night for pain control Lovenox as ordered for DVT prophylaxis. 30mg BID x 2-4 weeks. Also teds and AV impulse boots Encouraged exercises at bedside. Plans to return home with home health/nursing - [facility] home health referral placed by case management. Dr. Viera present for today's visit, agrees with plan. Will check on patient this afternoon to see how he's doing with oral pain medication and determine if ready for discharge at that time or if he'll stay until tomorrow for pain control. Patient understands and agrees with the plan. Follow up as scheduled. Present on Admission?: Yes (2) Tachycardia with heart rate 100-120 beats per minute: Mild post op tachycardia - asymptomatic Had previously with other total knee 2 1/2 years ago as well. Will french Present on Admission?: No Subjective resting in bed, comfortable, pleasant, states pain much better controlled this morning on 2mg Dilaudid. He's also taking Oxycodone and tramadol for pain as well. at bedside. Just participated in PT. Pleased with how things are going. Would like to go home today. Denies any chest pain, shortness of breath, difficulty urinating, nausea or vomiting. Physical Exam Physical Exam: Exam of right knee: dressings clean, dry, intact. Has 1+ dorsalis pedis pulse. Toes move well, full ankle strength. Able to independently SLR Right leg. No calf tenderness. Tolerates hip ROM without discomfort. Results & Data Vital Signs (Past 12 Hours) Vital Signs Temp Pulse Pulse Pulse Resp BP Pulse Ox 07/19/19 08:06 117 H 92 07/19/19 07:16 36.4 C L 110 H 14 140/84 88 L 07/19/19 03:30 36.7 C 101 H 17 126/78 92 07/19/19 00:41 94 H 07/18/19 23:22 36.8 C 107 H 17 134/81 90 Laboratory Results 07/19/19 07/19/19 Range/Units 04:45 04:45 WBC 14.93 H (4.8-10.8) K/uL RBC 4.43 L (4.7-6.1) M/uL Hgb 13.5 L (14.0-18.0) g/dL Hct 40.9 L (42-52) % MCV 92.3 (80-100) fL MCH 30.5 (25-34) pg MCHC 33.0 (32-36) g/dL RDW Std Deviation 45.4 (36.4-46.3) fL RDW Coeff of Alina 13.5 (11.5-14.5) % Plt Count 192 (130-400) K/uL MPV 10.7 H (7.4-10.4) fL Sodium 140 (136-145) mmol/L Potassium 4.3 (3.5-5.1) mmol/L Chloride 107 (98-107) mmol/L Carbon Dioxide 26 (21-32) mmol/L Anion Gap 8.0 (3-11) BUN 19 H (7-18) mg/dl Creatinine 0.91 (0.6-1.4) mg/dl Est Cr Clr Drug Dosing 90.3 ml/min Est GFR ( Amer) 100.7 Est GFR (Non-Af Amer) 86.9 BUN/Creatinine Ratio 20.4 H (10-20) Glucose 120 H (70-99) mg/dl Calcium 9.3 (8.5-10.1) mg/dl Diagnostic Findings XR knee RT 1 or 2V routine CLINICAL HISTORY: Surgical Post Op COMPARISON: 06/19/2019 DISCUSSION: There are postsurgical changes of a total right knee arthroplasty and patellar resurfacing. The femoral and tibial components appear well seated. There is soft tissue gas consistent with recent surgery. There are overlying skin jose manuel. IMPRESSION: Postsurgical changes of a total right knee arthroplasty.
--- NOTE | 2019-07-19 11:15 | Discharge Summary ---
Date of Service July 19, 2019 Discharge Data Consultations 07/18/19 10:35 Consult Case Management - Discharge Planning Routine Procedures Performed Operation Date: 07/18/19 07:00 Actual Procedures p Right Total Knee Arthroplasty(Right) - Jos Viera MD Hospital Course (1) Degenerative joint disease of knee, right: Patient was admitted to [facility] after undergoing an elective right total knee arthroplasty by Dr. Jos Viera on July 18, 2019. His surgery was perform a spinal anesthesia and peripheral nerve block. He tolerated the procedure well without any intraoperative complications. He was given 2 g IV Ancef preoperatively and this was continued for 24 hours postoperatively.He tolerated the procedure well without any complications. Postoperative x-rays of his right knee were obtained in the postoperative anesthesia care unit. X-rays showed a stable prosthesis. He was allowed out of bed, weightbearing as tolerated with a walker. Physical therapy and occupational therapy consults were placed. He was seen and evaluated by physical therapy and occupational therapy on postoperative day one. After surgery he did develop a lot of uncontrolled postoperative pain, on 0.5 mg-1 mg of IV Dilaudid, by mouth oxycodone and by mouth Tylenol and by mouth [place] at all. Non-of these were controlling his pain, discussed the issue with the pharmacist and recommended increasing his IV Dilaudid to 2 mg as needed for severe pain. This controlled his pain very well and on postoperative day one was much better.On postoperative day one he continued to need IV pain medication for his pain along with oxycodone and tramadol. He was seen and evaluated by case management and requested referral for home health. On postoperative day one he was encouraged to do his bedside exercises. He was able to do belly straight leg raises knee immobilizer was discontinued. He was instructed to continue use of a walker to assist with ambulation. He tolerated a regular diet during his inpatient stay and did not develop any chest pain, shortness of breath, nausea, vomiting or urinary retention. His H&H had a slight drop but he did not have any symptoms. No evidence of acute blood loss anemia. This will be followed as an outpatient. He was placed on Lovenox for DVT prophylaxis, 30 mg twice a day 2-4 weeks after surgery. He was also given [place] stockings and AV impulse boots during his inpatient stay. On postoperative day one he was also encouraged to take oral pain medication only to see if that would be enough to control his pain. If not he was able to do the IV Dilaudid. He did well with oral pain medication and was discharged to his home in stable condition on 07/19/19. (2) Tachycardia with heart rate 100-120 beats per minute: Patient developed this postoperatively. Asymptomatic. also had during last admission for left total knee arthroplasty 2-1/2 years ago. Most likely due to pain level and anxiety. Monitored during inpatient stay. No treatment recommendations at this time. Discharge Instructions as per EMR
== END 2019-07-19 17:23 | disposition home health service (06) | DRG 470 ==
LOC: ASU 04:49 → 3E 09:43